=== PATIENT | female | born 1945 | race Caucasian/White ===

== ENCOUNTER 2019-08-10 15:05 | Emergency (ER) | payer MEDICARE, SELFPAY ==
--- NOTE | 2019-08-10 15:05 | XR_ITS ---
WS: [id number] RIGHT FOOT: 3 VIEW(S) TECHNIQUE: AP, oblique and lateral. HISTORY: injury COMPARISON: None. Transverse fracture at the base of the fifth metatarsal. Fracture extends transversely through the pr oximal metatarsal but also extends into the diaphysis. No significant displacement. Moderate amount of soft tissue edema surrounding the foot. Small calcaneal spur. XR/XR foot RT min 3V* [id number] IMPRESSION: Nondisplaced fractures involving the proximal and mid fifth metatarsal without displacement.
[2019-08-10 15:11] VITALS: BP 124/82; PULSE 159; RESP 16; TEMP 37.1; O2SAT 95; BMI 31.3
--- NOTE | 2019-08-10 15:16 | XR_ITS ---
WS: [id number] PORTABLE CHEST HISTORY: dyspnea/cough COMPARISON: None available. Lungs are clear and well expanded. No pleural effusion or pneumothorax. Cardiac size: Mildly enlarged cardiac silhouette. Mediastinum/Aorta: Mildly prominent mediastinum. No osseous abnormality seen. XR/XR chest 1V portable [id number] IMPRESSION: Mild cardiomegaly and ectatic thoracic aorta.
--- NOTE | 2019-08-10 15:17 | ECG_ITS ---
Measurements Intervals [place] Rate: 123 P: [place]: 0 QRS: 207 QRSD: 101 T: 120 QT: 284 QTc: 408 ATRIAL FIBRILLATION WITH RAPID VENTRICULAR RESPONSE WITH ABERRANT CONDUCTION OR VENTRICULAR PREMATURE COMPLEXES POSSIBLE RIGHT VENTRICULAR HYPERTROPHY POSSIBLE ANTERIOR MYOCARDIAL INFARCTION , PROBABLY OLD No previous ECG available for comparison Electronically Signed On 08-11-2019 15:40:12 CDT by Becky Lowery M.D. [id number] f
[2019-08-10] MEDS: metoprolol tartrate 1 mg/1 mL SDV 5 mL 5 MG IV (15:41)
[2019-08-10] MEDS: metoprolol tartrate 25 mg Tablet PO ×2 (15:42→17:49)
[2019-08-10 15:44] VITALS: BP 104/85; PULSE 104; RESP 20; O2SAT 96
[2019-08-10 15:56] LABS: Basophils % 0.1 %; Eosinophils # 0.2 10^3/uL (0.0-0.8); Eosinophils % 1.9 %; Hemoglobin 12.4 g/dL (11.5-15.3); Lymphocytes # 1.5 10^3/uL (0.8-4.8); Lymphocytes % 15.1 %; Mean Corpuscular HGB Conc 32.6 g/dL (30.0-36.0); Mean Corpuscular Hemoglobin 30.7 pg (28.0-34.0); Mean Corpuscular Volume 94.1 fL (81-99); Mean Platelet Volume 10.1 fL (7.4-10.4); Monocytes % 10.2 %; Neutrophils # 7.3 10^3/uL (1.8-7.7); Neutrophils % 72.1 %; Nucleated Red Blood Cells % 0 %; Platelet Count 194 10^3/cmm (130-400); Red Blood Count 4.04 10^6/uL (4.1-5.3); Red Cell Distribution Width 12.5 % (12.1-15.1); White Blood Count 10.1 10^3/uL (4.0-10.0)
[2019-08-10 16:43] VITALS: BP 115/84; PULSE 88; RESP 20; O2SAT 95
--- NOTE | 2019-08-10 16:47 | W.ED.EXTPRO ---
HPI - Extremity Problem General: Chief complaint: Extremity Injury, Lower Stated complaint: R FOOT PAIN, SWELLING Time Seen by Provider: 08/10/19 15:08 History of Present Illness: HPI Narrative: 74-year-old female who comes in complaining of foot pain. She is brought in via EMS. 4 days ago she tripped over a weedeater while working outside and had foot pain laterally after that she developed a blister which is been draining slightly she has it covered. She denies any other injuries other than to the lateral aspect of the foot she has not been able to walk on it since. In addition to that though when on arrival she was found to be in A. fib with RVR she has a known history of A. fib with RVR and had not taken any of her medications today. MD Complaint: extremity pain and extremity swelling Onset (ago): day(s) (4) Pain Consistency: constant Location: right Associated symptoms: Deny chest pain, fever(s) or rash Review of Systems Const: Denies: fever, chills, body aches, change in appetite, fatigue or malaise ENMT: Denies: throat pain, ear pain, nasal discharge or nasal congestion Card: Reports: palpitations and irregular heart rhythm; Denies: chest pain, edema, shortness of breath on exertion or shortness of breath when lying down Resp: Denies: shortness of breath, productive cough or non-productive cough GI: Denies: abdominal pain, nausea, vomiting, vomiting blood, coffee grounds in vomit, diarrhea, constipation, bloating, blood in stool or black tarry stool : Denies: flank pain, difficulty urinating, painful urination, urinary frequency or urinary urgency Skin/Breast: Denies: rash or itching PFSH ED PFSH: Social History Smoking and tobacco status: never smoked Physical Exam Const: COMMON NORMALS: no apparent distress GENERAL APPEARANCE: cooperative and comfortable ORIENTATION/CONSCIOUSNESS: Yes awake, Yes oriented to person, Yes oriented to place and Yes oriented to time HENMT: COMMON NORMALS: normocephalic, head/scalp atraumatic, hearing grossly normal bilaterally, external ears normal, EAC's normal, TM's normal bilaterally, nasal mucous membranes and turbinates normal, moist oral mucous membranes and oropharynx normal HEAD & SCALP: normocephalic and atraumatic NOSE: nasal mucous membranes and turbinates normal EXTERNAL EAR: Yes external ears normal EXTERNAL AUDITORY CANAL: EAC's normal TYMPANIC MEMBRANE: TM's normal bilaterally Eye: COMMON NORMALS: PERRL, EOMs intact bilaterally, conjunctivae normal and no scleral icterus CONJUNCTIVA: Yes conjunctivae normal PUPIL: Yes PERRL Neck/C-Spine: COMMON NORMALS: full ROM, no lymphadenopathy, supple and no JVD Lymph: LYMPHATIC: no lymphadenopathy noted and no lymphedema noted Resp: COMMON NORMALS: normal respiratory effort, no retractions, no use of accessory muscles and clear to auscultation bilaterally AUSCULTATION: clear to auscultation bilaterally Cardio: COMMON NORMALS: no JVD and no murmurs RATE: tachycardic RHYTHM: abnormal rhythm irregularly irregular GI: COMMON NORMALS: soft to palpation and no hepatosplenomegaly AUSCULTATION: Yes normoactive bowel sounds PALPATION: Yes soft, No tender, No guarding and Yes no hepatosplenomegaly Extremity: COMMON NORMALS: no calf tenderness OTHER: Fracture blister on the lateral aspect of the right foot no signs infection no erythema no drainage is tender no obvious deformity dorsalis pedis posterior tibialis pulses are present and normal Neuro: SENSORIUM/ORIENTATION: Yes oriented to person, Yes oriented to place and Yes oriented to time Skin: COMMON NORMALS: no rashes or lesions noted GENERAL SKIN EXAM: no rashes or lesions noted Course Vital Signs: Vital signs: Vital Signs Temperature 98.8 F 08/10/19 15:11 Pulse Rate 86 08/10/19 18:03 Respiratory Rate 16 08/10/19 18:03 Blood Pressure 128/79 08/10/19 18:03 Pulse Oximetry 95 08/10/19 18:03 MDM - Extremity (Nontraumatic) MDM Narrative: Medical decision making narrative: X-ray shows a Walton fracture on the right foot. Will make arrangements for her to see podiatry early next week. Her A. fib is in rapid ventricular response when she arrived we gave her a dose of IV beta-sylvia and dosed her with her oral dig and oral beta-sylvia which she usually takes rate slowed down and remained controlled she was feeling fine we will go ahead and discharge her home. Lab Data: Labs: Lab Results 08/10/19 Range/Units 15:44 WBC 10.1 H (4.0-10.0) 10^3/ uL RBC 4.04 L (4.1-5.3) 10^6/u L Hgb 12.4 (11.5-15.3) g/dL Hct 38.0 (37.0-47.0) % MCV 94.1 (81-99) fL MCH 30.7 (28.0-34.0) pg MCHC 32.6 (30.0-36.0) g/dL RDW 12.5 (12.1-15.1) % Plt Count 194 (130-400) 10^3/c mm MPV 10.1 (7.4-10.4) fL Neut % (Auto) 72.1 % Lymph % (Auto) 15.1 % [place] % (Auto) 10.2 % Eos % (Auto) 1.9 % Baso % (Auto) 0.1 % Neut # (Auto) 7.3 (1.8-7.7) 10^3/u L Lymph # (Auto) 1.5 (0.8-4.8) 10^3/u L [place] # (Auto) 1.0 H (0.2-0.9) 10^3/u L Eos # (Auto) 0.2 (0.0-0.8) 10^3/u L Baso # (Auto) 0.0 (0.0-0.1) 10^3/u L Nucleated RBC % (a uto) 0 % Nucleated RBCs # 0.0 /100WBC Discharge Plan Discharge Patient Disposition: Home, Self-Care Clinical Impression: Walton fracture, Atrial fibrillation Condition: Stable Prescriptions: New hydrocodone-acetaminophen 5-325 mg tablet 1 tab PO Q6H PRN (Reason: pain) 20 Days Qty: 20 RF: 0 No Action furosemide 40 mg tablet 40 mg PO DAILY RF: 0 levothyroxine 175 mcg tablet 175 mcg PO DAILY RF: 0 metoprolol succinate 50 mg tablet extended release 24 hr 50 mg PO BID RF: 0 digoxin 250 mcg (0.25 mg) tablet 250 mcg PO DAILY RF: 0 potassium chloride 20 mEq tablet,ER particles/crystals 20 meq PO DAILY RF: 0 warfarin 5 mg tablet 5 mg PO DAILY RF: 0 gabapentin 100 mg capsule 100 mg PO BEDTIME RF: 0 timolol maleate 0.5 % drops 0.5 drp ophthalmic (eye) BID RF: 0 metformin 500 mg tablet extended release 24 hr 500 mg PO DAILY RF: 0 Humalog KwikPen Insulin 100 unit/mL insulin pen See Rx Instructions .ROUTE .COMPLEX RF: 0 Lantus Solostar U-100 Insulin 100 unit/mL (3 mL) insulin pen 40 unit SUBCUT BEDTIME RF: 0 Discharge Orders: Discharge Order (Routine); Ordered 08/10/19 Ordered By: Saul Raymond Referrals: Janae Wiggins MD [Primary Care Provider] - Discharge Diet: Usual diet Discharge Activity: Limit activity as instructed Activity Restrictions/Additional Instructions: Case management will call with an appointment with Dr. Ramirez. Until that time where the postop shoe and use crutches nonweightbearing on the right foot. Discharge Date/Time: 08/10/19 18:03 Coding Level of Care Code ED Complaint Operator for Yani Fwluz Exam Comprehensive
[2019-08-10 17:49] VITALS: PULSE 92
[2019-08-10] MEDS: digoxin 250 mcg Tablet PO (17:49)
[2019-08-10 18:03] VITALS: BP 128/79; PULSE 86; RESP 16; O2SAT 95
--- NOTE | 2019-08-11 10:01 | DCPLANNER ---
manager servicing had message to schedule a follow up appointment for patient with ortho. manager servicing called the ortho clinic, spoke with Pat, gave clinic patients information. manager servicing was told that patients information would be printed and reviewed. Clinic will call supervisor case loading and patient with appointment information.
--- NOTE | 2019-08-16 15:36 | DCPLANNER ---
Patient had an appointment scheduled for 08.14.19 with ortho. Patient did attend the appointment.
== END 2019-08-10 18:03 | disposition home or self-care (01) ==
PROVIDERS: Emergency Provider Family Medicine; Family Provider Family Medicine; PCP Family Medicine
DX: S92.351A Displaced fracture of fifth metatarsal bone, right foot, initial encounter for closed fracture (principal); W18.09XA Striking against other object with subsequent fall, initial encounter; I48.91 Unspecified atrial fibrillation; Z79.4 Long term (current) use of insulin; Z79.01 Long term (current) use of anticoagulants
CPT/HCPCS: 12345; 36415; 71045; 73630; 85025; 93005; 96374; 99283; E0114; J3490

== ENCOUNTER → 2019-08-14 12:48 | Outpatient (BNVA) | payer MEDICARE, SELFPAY | PROVIDERS: Family Provider Family Medicine; PCP Family Medicine; Referring Provider Emergency Medicine; Visit Provider Podiatrist Foot & Ankle Surgery | DX: S92.351A Displaced fracture of fifth metatarsal bone, right foot, initial encounter for closed fracture (principal); X58.XXXA Exposure to other specified factors, initial encounter | CPT/HCPCS: 73630 ==

== ENCOUNTER 2019-08-14 15:46 | Outpatient (CLI) | payer MEDICARE, SELFPAY | END 2019-08-14 15:47 | disposition home or self-care (01) | LOC: SPT 15:47 | PROVIDERS: Family Provider Family Medicine; PCP Family Medicine; Visit Provider Podiatrist Foot & Ankle Surgery | DX: Z46.89 Encounter for fitting and adjustment of other specified devices (principal); S92.354D Nondisplaced fracture of fifth metatarsal bone, right foot, subsequent encounter for fracture with routine healing; X58.XXXD Exposure to other specified factors, subsequent encounter | CPT/HCPCS: 73630; L4361 ==

== ENCOUNTER → 2019-08-21 10:49 | Outpatient (BNVA) | payer MEDICARE, SELFPAY | PROVIDERS: Family Provider Family Medicine; PCP Family Medicine; Visit Provider Podiatrist Foot & Ankle Surgery | DX: S99.921A Unspecified injury of right foot, initial encounter (principal); S92.354A Nondisplaced fracture of fifth metatarsal bone, right foot, initial encounter for closed fracture; X58.XXXA Exposure to other specified factors, initial encounter | CPT/HCPCS: 73630 ==

== ENCOUNTER → 2019-09-05 14:40 | Outpatient (BNVA) | payer MEDICARE, SELFPAY | PROVIDERS: Family Provider Family Medicine; PCP Family Medicine; Visit Provider Podiatrist Foot & Ankle Surgery | DX: S99.921A Unspecified injury of right foot, initial encounter (principal); S92.354A Nondisplaced fracture of fifth metatarsal bone, right foot, initial encounter for closed fracture; X58.XXXA Exposure to other specified factors, initial encounter; M77.31 Calcaneal spur, right foot | CPT/HCPCS: 73630 ==

== ENCOUNTER → 2019-09-19 14:18 | Outpatient (BNVA) | payer MEDICARE, SELFPAY | PROVIDERS: Family Provider Family Medicine; PCP Family Medicine; Visit Provider Podiatrist Foot & Ankle Surgery | DX: S92.354A Nondisplaced fracture of fifth metatarsal bone, right foot, initial encounter for closed fracture (principal); X58.XXXA Exposure to other specified factors, initial encounter | CPT/HCPCS: 73630 ==

== ENCOUNTER 2019-09-19 15:31 | Outpatient (CLI) | payer MEDICARE, SELFPAY | END 2019-09-19 15:32 | disposition home or self-care (01) | LOC: SPT 15:31 | PROVIDERS: Family Provider Family Medicine; PCP Family Medicine; Visit Provider Podiatrist Foot & Ankle Surgery | DX: Z46.89 Encounter for fitting and adjustment of other specified devices (principal); S92.354D Nondisplaced fracture of fifth metatarsal bone, right foot, subsequent encounter for fracture with routine healing; X58.XXXD Exposure to other specified factors, subsequent encounter; S92.354A Nondisplaced fracture of fifth metatarsal bone, right foot, initial encounter for closed fracture; X58.XXXA Exposure to other specified factors, initial encounter | CPT/HCPCS: 73630; 97760; L1902; L3031 ==

== ENCOUNTER → 2019-10-03 14:52 | Outpatient (BNVA) | payer MEDICARE, SELFPAY | PROVIDERS: Family Provider Family Medicine; PCP Family Medicine; Visit Provider Podiatrist Foot & Ankle Surgery | DX: S92.354D Nondisplaced fracture of fifth metatarsal bone, right foot, subsequent encounter for fracture with routine healing (principal); W18.09XD Striking against other object with subsequent fall, subsequent encounter | CPT/HCPCS: 73630 ==

== ENCOUNTER → 2019-10-31 15:12 | Outpatient (BNVA) | payer MEDICARE, SELFPAY | PROVIDERS: Family Provider Family Medicine; PCP Family Medicine; Visit Provider Podiatrist Foot & Ankle Surgery | DX: S92.354D Nondisplaced fracture of fifth metatarsal bone, right foot, subsequent encounter for fracture with routine healing (principal); R23.8 Other skin changes; G62.9 Polyneuropathy, unspecified | CPT/HCPCS: 73630 ==

== ENCOUNTER → 2019-11-28 13:57 | Outpatient (BNVA) | payer MEDICARE, SELFPAY | PROVIDERS: Family Provider Family Medicine; PCP Family Medicine; Visit Provider Podiatrist Foot & Ankle Surgery | DX: S92.354D Nondisplaced fracture of fifth metatarsal bone, right foot, subsequent encounter for fracture with routine healing (principal); X58.XXXD Exposure to other specified factors, subsequent encounter; R23.8 Other skin changes | CPT/HCPCS: 73630 ==

== ENCOUNTER → 2020-01-23 14:29 | Outpatient (BNVA) | payer MEDICARE, SELFPAY | PROVIDERS: Family Provider Family Medicine; PCP Family Medicine; Visit Provider Podiatrist Foot & Ankle Surgery | DX: S92.354D Nondisplaced fracture of fifth metatarsal bone, right foot, subsequent encounter for fracture with routine healing (principal); X58.XXXD Exposure to other specified factors, subsequent encounter | CPT/HCPCS: 73630 ==

== ENCOUNTER 2020-10-05 11:28 | Inpatient (IN) | payer MEDICARE, SELFPAY ==
[2020-10-05] VITALS (31 sets, daily range): BP systolic 71–157; BP diastolic 40–109; PULSE 82–116; RESP 14–20; TEMP 35.9–36.8; O2SAT 91–95; BMI 34.7
--- NOTE | 2020-10-05 11:49 | CTR_ITS ---
PROCEDURE INFORMATION: Exam: CT Head Without Contrast Exam date and time: 10/05/2020 11:49 AM Age: 75 years old Clinical indication: Altered mental status/memory loss; Confusion or disorientation; Additional info: AMS TECHNIQUE: Imaging protocol: Computed tomography of the head without contrast. Radiation optimization: All CT scans at this facility use at least one of these dose optimization techniques: automated exposure control; mA and/or kV adjustment per patient size (includes targeted exams where dose is matched to clinical indication); or iterative reconstruction. COMPARISON: MRI Head w/wo* [id number] 01/19/2019 2:54 PM RADIATION DOSE METRICS: Total DLP (mGy-cm): 1477.01 FINDINGS: Limitations: Study is somewhat limited by patient motion. 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 There is moderate cortical atrophy. Low-density changes in the white matter are consistent with nonspecific small vessel chronic ischemic change. There is no intracranial mass, hemorrhage or edema. Cerebral ventricles: No ventriculomegaly. Paranasal sinuses: Visualized sinuses are unremarkable. No fluid levels. Mastoid air cells: Visualized mastoid air cells are well aerated. Bones/joints: Unremarkable. No acute fracture. Soft tissues: Unremarkable. CT/CT head wo con* [id number] IMPRESSION: Old infarcts. No acute intracranial finding Radiation Dose CTDIVOL = (mGy): DLP = 1477.01 (mGy-cm)
[2020-10-05] MEDS: dextrose 50% syringe 50 mL IVP (11:55)
--- NOTE | 2020-10-05 11:58 | XRR_ITS ---
PROCEDURE INFORMATION: Exam: XR Chest Exam date and time: 10/05/2020 11:58 AM Age: 75 years old Clinical indication: Dyspnea; Additional info: AMS TECHNIQUE: Imaging protocol: XR of the chest. Views: 1 view. COMPARISON: CR XR chest 1V portable [id number] 08/10/2019 3:28 PM FINDINGS: Limitations: Patient is rotated towards the right. Lungs: Visualized portions of the lungs are clear. Pleural spaces: Unremarkable. No pleural effusion. No pneumothorax. Heart/Mediastinum: Heart is within normal limits of size. Vasculature: There are atherosclerotic calcifications in the aortic arch. Bones/joints: Unremarkable. Other findings: Allowing for technical differences, findings are not significantly changed from 08/10/2019. XR/XR chest 1V portable [id number] IMPRESSION: No acute infiltrate.
--- NOTE | 2020-10-05 11:58 | ECG_ITS ---
[facility] Test Date: 2020-10-05 Pat Name: Sandra Richardson Department: Room: Gender: Female Java Developer: : 1945 Requested By: Nimesh Escobedo I Order Number: [id number] Flip MD: Saloni Silverio M.D. Measurements Intervals [place] Rate: 85 P: [place]: QRS: 179 QRSD: 103 T: 0 QT: 318 QTc: 378 Interpretive Statements ATRIAL FIBRILLATION INDETERMINATE AXIS PATTERN CONSISTENT WITH PULMONARY DISEASE MODERATE ST DEPRESSION [0.05+ mV ST DEPRESSION] Compared to ECG 08/10/2019 15:26:50 Indeterminate axis now present ST (T wave) deviation now present Aberrant conduction of supraventricular beat(s) no longer present Ventricular premature complex(es) no longer present Myocardial infarct finding no longer present Electronically Signed On 10-06-2020 9:44:16 CDT by Saloni Silverio M.D. [id number]
[2020-10-05] MEDS: naloxone 0.4 mg/ml SDV IVP (12:00)
[2020-10-05 12:28] LABS: ABG PCO2 42.9 mmHg (35-45); ABG PH Result 7.43 (7.35-7.45); Arterial Blood Gas Hematocrit 46.2 % (37-47); Base Excess ABG 3.7 mmol/L (-2.0-2.0); Blood Gas Allen Test Pos; Blood Gas Sample Type Arterial; HCO3 ABG 28.6 mmol/L (22-26); PO2 ABG 74.3 mmHg (80.0-100.0)
[2020-10-05 12:29] LABS: Blood Gas Operator Identificat ED; Blood Gas Sample Site Radial, left; Oxygen Device ROOM AIR
[2020-10-05 12:41] LABS: Basophils # 0.1 10^3/uL (0.0-0.1); Basophils % 0.7 %; Eosinophils % 0.4 %; Hematocrit 44.3 % (37.0-47.0); Hemoglobin 14.9 g/dL (11.5-15.3); Lymphocytes # 0.9 10^3/uL (0.8-4.8); Lymphocytes % 8.9 %; Mean Corpuscular HGB Conc 33.6 g/dL (30.0-36.0); Mean Corpuscular Volume 89.3 fL (81-99); Mean Platelet Volume 9.6 fL (7.4-10.4); Monocytes # 1.1 10^3/uL (0.2-0.9); Monocytes % 10.3 %; Neutrophils # 8.15 10^3/uL (1.8-7.7); Neutrophils % 79.1 %; Nucleated Red Blood Cells % 0 %; Platelet Count 228 10^3/cmm (130-400); Red Blood Count 4.96 10^6/uL (4.1-5.3); Red Cell Distribution Width 12.6 % (12.1-15.1); White Blood Count 10.3 10^3/uL (4.0-10.0)
[2020-10-05 13:00] LABS: Glucose Point of Care 200 mg/dL (70-110)
[2020-10-05 13:24] LABS: Lactic Sepsis W/Reflex 1.6 mmol/L (0.5-2.2)
[2020-10-05 13:26] LABS: Albumin Level 3.6 g/dL (3.5-5.2); Chloride 95 mmol/L (98-107); Sodium 136 mmol/L (136-145)
[2020-10-05 13:27] LABS: Troponin(5th) Baseline 33 ng/L (0-10)
--- NOTE | 2020-10-05 13:58 | ECG_ITS ---
[facility] Test Date: 2020-10-05 Pat Name: Sandra Richardson Department: Room: Gender: Female Rod Greaser: : 1945 Requested By: Nimesh Escobedo I Order Number: [id number] Flip MD: Saloni Silverio M.D. Measurements Intervals [place] Rate: 93 P: [place]: QRS: 149 QRSD: 109 T: 240 QT: 311 QTc: 387 Interpretive Statements ATRIAL FIBRILLATION INDETERMINATE AXIS PATTERN CONSISTENT WITH PULMONARY DISEASE MODERATE ST DEPRESSION [0.05+ mV ST DEPRESSION] ABNORMAL QRS-T ANGLE [QRS-T AXIS DIFFERENCE > 60] INTERPRETATION BASED ON A DEFAULT AGE OF 40 YEARS Compared to ECG 10/05/2020 12:06:22 No significant changes Electronically Signed On 10-06-2020 9:47:53 CDT by Saloni Silverio M.D. [id number]
[2020-10-05 13:59] LABS: Alanine Aminotransferase 28 U/L (0-33); Alkaline Phosphatase 129 IU/L (35-105); Aspartate Amino Transferase 61 U/L (0-32); Blood Urea Nitrogen 21 mg/dL (8-23); Calcium 9.1 mg/dL (8.5-10.5); Carbon Dioxide 29 mmol/L (22-29); Globulin 2.1 g/dL (1.3-4.6); Glucose 284 mg/dL (65-115); Osmolality Calculated 295 mOsm/kg (285-295); Total Bilirubin 0.8 mg/dL (0.15-1.2); Total Protein 5.7 g/dL (6.6-8.7)
--- NOTE | 2020-10-05 14:46 | W.ED.AMS ---
HPI - Altered Mental Status General: Chief Complaint: Altered Mental Status Stated Complaint: HYPOGLYCEMIA; AMS Time Seen by Provider: 10/05/20 11:32 Source: family (sister) and EMS Mode of arrival: ambulatory Limitations: no limitations History of Present Illness: HPI narrative: This 75-year-old female patient was brought in by EMS after she was found by her sister unresponsive this morning. History is given by the sister and EMS. Her sister is visiting the patient from [place] and last night the patient went to the restroom and when her sister noticed that she was there for a long time she went into check on her and the patient was slumped over in the toilet. Blood glucose done at the time was in the 30s. They were able to get the patient awake got her to eat some things and wanted to call an ambulance for the patient refused and said she was better. The highest to go her blood glucose up to was something in the 80s and they gave her her nighttime insulin dose. Again the patient refused to go to the emergency department and refused to eat anymore as she said she was fine and new when she was hypoglycemic. She then went to sleep. This morning around 930 her sister went to go wake her up but heard her snoring so did not wake the patient up. When he was 10:00 and the patient still had awoken of the sister wanted to try to get her to wake up and that is when she noticed that the patient was unresponsive and she could not get her to wake up. Blood glucose checked at the time was 41 and she called for an ambulance. The EMS crew gave her D5 infusion and on arrival to the emergency department her blood glucose was 68. She was given an amp of D50 following which her blood glucose junior into the 160s. The patient however still remained unresponsive and a trial of Narcan was done on which was not effective. Patient spontaneously opens eyes, makes some unintelligible sounds, and localizes to pain. complaint: altered mental status Review of Systems General: Reports: ROS unobtainable due to mental status [facility] ED PFSH: Medical History Atrial fibrillation CHF (congestive heart failure) Graves disease HTN (hypertension) Mitral regurgitation Type 1 diabetes Family History Mother Cancer CAD (coronary artery disease) Myocardial infarction Father Myocardial infarction Social History Smoking and tobacco status: never smoked Alcohol intake: never Current occupational status: retired Physical Exam Const: COMMON NORMALS: no acute distress, average body habitus, patient oriented x3, no limitations, healthy appearing and well nourished HENMT: COMMON NORMALS: normocephalic, atraumatic and moist oral mucous membranes HEAD & SCALP: normocephalic and atraumatic Eye: COMMON NORMALS: Equal, round and reactive pupils present, EOMs intact bilaterally, conjunctivae normal and no scleral icterus CONJUNCTIVA: Yes conjunctivae normal PUPIL: Yes Equal, round and reactive pupils present Neck/C-Spine: COMMON NORMALS: no meningeal signs and no JVD Resp: COMMON NORMALS: normal respiratory effort, No retractions, No use of accessory muscles, clear to auscultation bilaterally and percussion normal AUSCULTATION: clear to auscultation bilaterally PERCUSSION: percussion normal Cardio: COMMON NORMALS: no JVD, regular rate, regular rhythm, S1 normal heart sound present, S2 normal heart sound present, No gallops present (Cardio), No clicks present (Cardio), No murmurs present (Cardio), No rub (Cardio) and Peripheral pulses 2+ throughout RATE: regular rate RHYTHM: regular rhythm HEART SOUNDS: S1 normal heart sound present and S2 normal heart sound present PERIPHERAL PULSES: Peripheral pulses 2+ throughout GI: COMMON NORMALS: Normal to inspection, nondistended, normoactive bowel sounds present, Soft to palpation, non-tender, No hepatosplenomegaly present, no masses and no bruits PALPATION: Yes Soft to palpation and Yes No hepatosplenomegaly present Extremity: COMMON NORMALS: normal to inspection, full ROM, capillary refill normal, no calf tenderness and no pedal edema Neuro: ЕЛЕНА COMA SCALE: document GCS findings Елена coma scale eye opening: Spontaneous [place] coma scale verbal response: Sounds [place] coma scale motor response: Localising [place] coma scale total score: 11 COMMON NORMALS: patient oriented x3 SENSORIUM/ORIENTATION: Yes obtunded MENINGEAL SIGNS: Yes no meningeal signs Skin: COMMON NORMALS: no rashes or lesions noted, no wounds, turgor normal, no jaundice, no petechiae and no mottling GENERAL SKIN EXAM: no rashes or lesions noted and turgor normal Course Consultations: Consultation #1: Discussed the patient with Dr. Cannon, hospitalist and he kindly accepted the patient to his service. Time: 14:36 Vital Signs: Vital signs: Vital Signs Temperature 98.2 F 10/05/20 19:15 Pulse Rate 93 10/05/20 22:15 Respiratory Rate 14 10/05/20 22:15 Blood Pressure 109/62 10/05/20 22:15 Pulse Oximetry 94 10/05/20 22:15 MDM - Altered Mental Status MDM Narrative: Medical decision making narrative: This 75-year-old female patient presented to the emergency department with unresponsiveness. Unfortunately it appears as she spent the whole night hypoglycemic and has had a prolonged hypoglycemic episode. She had an episode of hypoglycemia last night with blood glucose in the 30s, her family was able to raise it up into the 80s but still subsequently gave her her nighttime insulin dose. This morning when they tried to wake her up she was unresponsive and her blood glucose at that time was in the 40s. Her blood glucose has been raised for the patient is still unresponsive with a Елена Coma Score fluctuating between the 10 and 11. Evaluation was otherwise unremarkable with no obvious cause for her symptoms. Unfortunately the prolonged hypoglycemia may have caused some brain damage and she will be admitted to the ICU for further evaluation and management. She was started on prophylactic antibiotics in case she may have aspirated overnight. Medical Records: Attestation: I reviewed the patient's medical records. Lab Data: Attestation: I reviewed the patient's lab results. Labs: Lab Results 10/05/20 10/05/20 10/05/20 Range/Units 12:18 12:27 12:27 WBC 10.3 H (4.0-10.0) 10^3/ uL RBC 4.96 (4.1-5.3) 10^6/u L Hgb 14.9 (11.5-15.3) g/dL Hct 44.3 (37.0-47.0) % MCV 89.3 (81-99) fL MCH 30.0 (28.0-34.0) pg MCHC 33.6 (30.0-36.0) g/dL RDW 12.6 (12.1-15.1) % Plt Count 228 (130-400) 10^3/c mm MPV 9.6 (7.4-10.4) fL Neut % (Auto) 79.1 % Lymph % (Auto) 8.9 % Leslie % (Auto) 10.3 % Eos % (Auto) 0.4 % Baso % (Auto) 0.7 % Neut # (Auto) 8.15 H (1.8-7.7) 10^3/u L Lymph # (Auto) 0.9 (0.8-4.8) 10^3/u L Leslie # (Auto) 1.1 H (0.2-0.9) 10^3/u L Eos # (Auto) 0.0 (0.0-0.8) 10^3/u L Baso # (Auto) 0.1 (0.0-0.1) 10^3/u L Nucleated RBC % (a uto) 0 % Nucleated RBCs # 0.0 /100WBC D-Dimer (0-0.59) ug/mIFE U Specimen Type Arterial Sample Site Radial, left ABG pH 7.43 (7.35-7.45) ABG pCO2 42.9 (35-45) mmHg ABG pO2 74.3 L (80.0-100.0) mmH g ABG HCO3 28.6 H (22-26) mmol/L ABG Base Excess 3.7 H (-2.0-2.0) mmol/ L Shahid Test Pos Hematocrit 46.2 (37-47) % O2 Delivery Device Room air FiO2 21.0 % Power Hair Clipper ID Ed Sodium 136 (136-145) mmol/L Potassium 4.0 (3.5-5.1) mmol/L Chloride 95 L (98-107) mmol/L Carbon Dioxide 29 (22-29) mmol/L Anion Gap 16.0 (5-19) BUN 21 (8-23) mg/dL Creatinine 1.2 H (0.5-0.9) mg/dL GFR Calculation Not Reportable Glucose 284 H (65-115) mg/dL POC Glucose (70-110) mg/dL Calculated Osmolal ity 295 (285-295) mOsm/k g Lactic Acid (0.5-2.2) mmol/L Calcium 9.1 (8.5-10.5) mg/dL Total Bilirubin 0.8 (0.15-1.2) mg/dL AST 61 H (0-32) U/L ALT 28 (0-33) U/L Alkaline Phosphata se 129 H (35-105) IU/L Troponin T Baselin e (0-10) ng/L Troponin T 120 Min [place] (0-10) ng/L Delta Troponin T (0-10) ABS# Total Protein 5.7 L (6.6-8.7) g/dL Albumin 3.6 (3.5-5.2) g/dL Globulin 2.1 (1.3-4.6) g/dL TSH (0.27-4.20) uIU/ mL Digoxin (0.6-1.2) ng/mL 10/05/20 10/05/20 10/05/20 Range/Units 12:27 12:27 12:27 WBC (4.0-10.0) 10^3/ uL RBC (4.1-5.3) 10^6/u L Hgb (11.5-15.3) g/dL Hct (37.0-47.0) % MCV (81-99) fL MCH (28.0-34.0) pg MCHC (30.0-36.0) g/dL RDW (12.1-15.1) % Plt Count (130-400) 10^3/c mm MPV (7.4-10.4) fL Neut % (Auto) % Lymph % (Auto) % Leslie % (Auto) % Eos % (Auto) % Baso % (Auto) % Neut # (Auto) (1.8-7.7) 10^3/u L Lymph # (Auto) (0.8-4.8) 10^3/u L Leslie # (Auto) (0.2-0.9) 10^3/u L Eos # (Auto) (0.0-0.8) 10^3/u L Baso # (Auto) (0.0-0.1) 10^3/u L Nucleated RBC % (a uto) % Nucleated RBCs # /100WBC D-Dimer 0.57 (0-0.59) ug/mIFE U Specimen Type Sample Site ABG pH (7.35-7.45) ABG pCO2 (35-45) mmHg ABG pO2 (80.0-100.0) mmH g ABG HCO3 (22-26) mmol/L ABG Base Excess (-2.0-2.0) mmol/ L Shahid Test Hematocrit (37-47) % O2 Delivery Device FiO2 % Power Hair Clipper ID Sodium (136-145) mmol/L Potassium (3.5-5.1) mmol/L Chloride (98-107) mmol/L Carbon Dioxide (22-29) mmol/L Anion Gap (5-19) BUN (8-23) mg/dL Creatinine (0.5-0.9) mg/dL GFR Calculation Glucose (65-115) mg/dL POC Glucose (70-110) mg/dL Calculated Osmolal ity (285-295) mOsm/k g Lactic Acid 1.6 (0.5-2.2) mmol/L Calcium (8.5-10.5) mg/dL Total Bilirubin (0.15-1.2) mg/dL AST (0-32) U/L ALT (0-33) U/L Alkaline Phosphata se (35-105) IU/L Troponin T Baselin e 33 H (0-10) ng/L Troponin T 120 Min [place] (0-10) ng/L Delta Troponin T (0-10) ABS# Total Protein (6.6-8.7) g/dL Albumin (3.5-5.2) g/dL Globulin (1.3-4.6) g/dL TSH (0.27-4.20) uIU/ mL Digoxin (0.6-1.2) ng/mL 10/05/20 10/05/20 10/05/20 Range/Units 12:57 14:27 14:27 WBC (4.0-10.0) 10^3/ uL RBC (4.1-5.3) 10^6/u L Hgb (11.5-15.3) g/dL Hct (37.0-47.0) % MCV (81-99) fL MCH (28.0-34.0) pg MCHC (30.0-36.0) g/dL RDW (12.1-15.1) % Plt Count (130-400) 10^3/c mm MPV (7.4-10.4) fL Neut % (Auto) % Lymph % (Auto) % Leslie % (Auto) % Eos % (Auto) % Baso % (Auto) % Neut # (Auto) (1.8-7.7) 10^3/u L Lymph # (Auto) (0.8-4.8) 10^3/u L Leslie # (Auto) (0.2-0.9) 10^3/u L Eos # (Auto) (0.0-0.8) 10^3/u L Baso # (Auto) (0.0-0.1) 10^3/u L Nucleated RBC % (a uto) % Nucleated RBCs # /100WBC D-Dimer (0-0.59) ug/mIFE U Specimen Type Sample Site ABG pH (7.35-7.45) ABG pCO2 (35-45) mmHg ABG pO2 (80.0-100.0) mmH g ABG HCO3 (22-26) mmol/L ABG Base Excess (-2.0-2.0) mmol/ L Shahid Test Hematocrit (37-47) % O2 Delivery Device FiO2 % Power Hair Clipper ID Sodium (136-145) mmol/L Potassium (3.5-5.1) mmol/L Chloride (98-107) mmol/L Carbon Dioxide (22-29) mmol/L Anion Gap (5-19) BUN (8-23) mg/dL Creatinine (0.5-0.9) mg/dL GFR Calculation Glucose (65-115) mg/dL POC Glucose 200 H (70-110) mg/dL Calculated Osmolal ity (285-295) mOsm/k g Lactic Acid (0.5-2.2) mmol/L Calcium (8.5-10.5) mg/dL Total Bilirubin (0.15-1.2) mg/dL AST (0-32) U/L ALT (0-33) U/L Alkaline Phosphata se (35-105) IU/L Troponin T Baselin e (0-10) ng/L Troponin T 120 Min [place] 29.81 H (0-10) ng/L Delta Troponin T -3.19 L (0-10) ABS# Total Protein (6.6-8.7) g/dL Albumin (3.5-5.2) g/dL Globulin (1.3-4.6) g/dL TSH (0.27-4.20) uIU/ mL Digoxin 1.2 (0.6-1.2) ng/mL 10/05/20 Range/Units 14:27 WBC (4.0-10.0) 10^3/ uL RBC (4.1-5.3) 10^6/u L Hgb (11.5-15.3) g/dL Hct (37.0-47.0) % MCV (81-99) fL MCH (28.0-34.0) pg MCHC (30.0-36.0) g/dL RDW (12.1-15.1) % Plt Count (130-400) 10^3/c mm MPV (7.4-10.4) fL Neut % (Auto) % Lymph % (Auto) % Leslie % (Auto) % Eos % (Auto) % Baso % (Auto) % Neut # (Auto) (1.8-7.7) 10^3/u L Lymph # (Auto) (0.8-4.8) 10^3/u L Leslie # (Auto) (0.2-0.9) 10^3/u L Eos # (Auto) (0.0-0.8) 10^3/u L Baso # (Auto) (0.0-0.1) 10^3/u L Nucleated RBC % (a uto) % Nucleated RBCs # /100WBC D-Dimer (0-0.59) ug/mIFE U Specimen Type Sample Site ABG pH (7.35-7.45) ABG pCO2 (35-45) mmHg ABG pO2 (80.0-100.0) mmH g ABG HCO3 (22-26) mmol/L ABG Base Excess (-2.0-2.0) mmol/ L Shahid Test Hematocrit (37-47) % O2 Delivery Device FiO2 % Power Hair Clipper ID Sodium (136-145) mmol/L Potassium (3.5-5.1) mmol/L Chloride (98-107) mmol/L Carbon Dioxide (22-29) mmol/L Anion Gap (5-19) BUN (8-23) mg/dL Creatinine (0.5-0.9) mg/dL GFR Calculation Glucose (65-115) mg/dL POC Glucose (70-110) mg/dL Calculated Osmolal ity (285-295) mOsm/k g Lactic Acid (0.5-2.2) mmol/L Calcium (8.5-10.5) mg/dL Total Bilirubin (0.15-1.2) mg/dL AST (0-32) U/L ALT (0-33) U/L Alkaline Phosphata se (35-105) IU/L Troponin T Baselin e (0-10) ng/L Troponin T 120 Min [place] (0-10) ng/L Delta Troponin T (0-10) ABS# Total Protein (6.6-8.7) g/dL Albumin (3.5-5.2) g/dL Globulin (1.3-4.6) g/dL TSH 0.34 (0.27-4.20) uIU/ mL Digoxin (0.6-1.2) ng/mL Imaging Data^: CXR: Attestation: I personally reviewed and interpreted this imaging study as follows: Radiologist's impression: [address] [address]PRvs ReportSigned Patient: Sandra Richardson #: [id number]: [id number]#:[id number]/Sex: 75 / FADM Date: 10/05/20Loc: ERRoom/Bed:Attending Dr: Ordering Provider/Ordering MD: Nimesh Escobedo MD, [facility] Date of Service: 10/05/20 Procedure(s): XR chest 1V portable [id number] Accession Number(s): [id number] Report Number: [id number] PROCEDURE INFORMATION: Exam: XR Chest Exam date and time: 10/05/2020 11:58 AM Age: 75 years old Clinical indication: Dyspnea; Additional info: AMS TECHNIQUE: Imaging protocol: XR of the chest. Views: 1 view. COMPARISON: CR XR chest 1V portable [id number] 08/10/2019 3:28 PM FINDINGS: Limitations: Patient is rotated towards the right. Lungs: Visualized portions of the lungs are clear. Pleural spaces: Unremarkable. No pleural effusion. No pneumothorax. Heart/Mediastinum: Heart is within normal limits of size. Vasculature: There are atherosclerotic calcifications in the aortic arch. Bones/joints: Unremarkable. Other findings: Allowing for technical differences, findings are not significantly changed from 08/10/2019. XR/XR chest 1V portable [id number] IMPRESSION: No acute infiltrate. Dictated By:Sadie Genaoigned By:Hong Genao Date/Time:10/05/20 1308DD/ 1305 CT Head: Attestation: I personally reviewed and interpreted this imaging study as follows: Radiologist's impression: [employer] [place], [place] [address]FH Scan ReportSigned Patient: Sandra Richardson #: [id number]: 8Acct#:[id number]/Sex: 75 / FADM Date: 10/05/20Loc: ERRoom/Bed:Attending Dr: Ordering Provider/Ordering MD: Nimesh Escobedo MD, [facility] Date of Service: 10/05/20 Procedure(s): CT head wo con* [id number] Accession Number(s): [id number] Report Number: [id number] PROCEDURE INFORMATION: Exam: CT Head Without Contrast Exam date and time: 10/05/2020 11:49 AM Age: 75 years old Clinical indication: Altered mental status/memory loss; Confusion or disorientation; Additional info: AMS TECHNIQUE: Imaging protocol: Computed tomography of the head without contrast. Radiation optimization: All CT scans at this facility use at least one of these dose optimization techniques: automated exposure control; mA and/or kV adjustment per patient size (includes targeted exams where dose is matched to clinical indication); or iterative reconstruction. COMPARISON: MRI Head w/wo* [id number] 01/19/2019 2:54 PM RADIATION DOSE METRICS: Total DLP (mGy-cm): 1477.01 FINDINGS: Limitations: Study is somewhat limited by patient motion. 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 There is moderate cortical atrophy. Low-density changes in the white matter are consistent with nonspecific small vessel chronic ischemic change. There is no intracranial mass, hemorrhage or edema. Cerebral ventricles: No ventriculomegaly. Paranasal sinuses: Visualized sinuses are unremarkable. No fluid levels. Mastoid air cells: Visualized mastoid air cells are well aerated. Bones/joints: Unremarkable. No acute fracture. Soft tissues: Unremarkable. CT/CT head wo con* [id number] IMPRESSION: Old infarcts. No acute intracranial finding Radiation Dose CTDIVOL = (mGy): DLP = 1477.01 (mGy-cm) Dictated By:Hong Genao By:Hong Genao Date/Time:10/05/20 1234DD/ 1232 EKG Data^: EKG 1: Attestation: I personally reviewed and interpreted this EKG as follows: EKG interpretation date: 10/05/20 EKG interpretation time: 12:06 Prior EKG tracings: not available for review Interpretation: Atrial fibrillation. Heart rate [address] changes. EKG 2: Attestation: I personally reviewed and interpreted this EKG as follows: EKG interpretation date: 10/05/20 EKG interpretation time: 13:37 Prior EKG tracings: available for review Interpretation: Atrial fibrillation. Heart rate [address] changes. Discharge Plan Discharge Patient Disposition: Admitted As Inpatient Admit Provider: Tesfaye Cannon Clinical Impression: Acute encephalopathy, Hypoglycemia, coma Atrial fibrillation Qualifiers: Atrial fibrillation type: unspecified Qualified Code(s): I48.91 - Unspecified atrial fibrillation Condition: Stable Coding Level of Care Code ED Bilingual Administrative Assistant for [facility] Fwd Exam Problem Focused
[2020-10-05 15:04] LABS: Troponin 5 2HR 29.81 ng/L (0-10)
[2020-10-05 15:19] LABS: Troponin 5 2HR Delta -3.19 ABS# (0-10)
[2020-10-05] MEDS: levofloxacin-dextrose 5 % 750 MG/150 ML PREMIX 100 MG IV (15:44)
--- NOTE | 2020-10-05 15:52 | P.HP_ITS ---
Providers/Chief Complaint Admitting Physician: Tesfaye Cannon MD Primary Care Provider: Janae Wiggins MD Chief Complaint: HYPOGLYCEMIA; AMS History of Present Illness Sandra Richardson is a 75 year old female with past medical history of, hypertension diabetes, heart failure, A. fib, hypothyroidism, was brought in by the EMS, with chief complaint of, patient not responding at home. Patient sister is at bedside and history is provided by her, patient has diabetes, and she was found in the bathroom last night by her sister who was visiting her from [place] after she was not doing well. Last night when she checked her blood sugar, it was very low, she ended up giving her, food to eat, to bring her blood sugar up, around 80 that is what she says, after that patient took her the night dose of insulin, when in the morning she was not waking up till 10:00, she was very worried, finger blood sugar was checked, it was in 40s, EMS was called, EMS gave D5 in route, blood sugar on arrival in the ER was in 60s she was given D50 and Narcan. Blood sugar was stable in 200s. She was worked up for above mentioned complaint. Imaging studies: CT head wo con: No acute intracranial finding. X-ray chest: No acute infiltrates, EKG: A. fib, with rate controlled, Pertinent labs: WBC:10.3, H&H:14/44, normal serum sodium normal serum potassium, BUN:normal, serum creatinine:1.2, Troponin: Baseline 33, 2-hour: 29, 2-hour delta:-3.19, D-dimer:0.57, serum digoxin:1.2, Serum TSH: ABG: pH 7.43, PCO2 42, PO2 74, FiO2 21% Review of Systems General: Reports: ROS unobtainable due to mental status Narrative: GCS:11 Medications/Allergies Home Medications Medication Instructions Recorded Confirmed Last Taken Type furosemide 40 mg PO DAILY 08/10/19 10/05/20 10/04/20 History gabapentin 100 mg PO DAILY 08/10/19 10/05/20 10/04/20 History insulin glargine [Lantus Solostar 50 unit SUBCUT BEDTIME 08/10/19 10/05/20 10/04/20 History U-100 Insulin] insulin lispro [Humalog KwikPen See Rx Instructions .ROUTE .COMPLEX 04/30/20 06/26/21 06/25/21 History Insulin] levothyroxine 175 mcg PO DAILY 08/10/19 10/05/20 10/05/20 History metformin 500 mg PO DAILY 08/10/19 10/05/20 10/04/20 History warfarin 5 mg PO DAILY 08/10/19 10/05/20 10/04/20 History brimonidine 0.2 %-timolol 0.5 % 1 drop OPHTHALMIC (EYE) BID 10/16/19 10/05/20 10/05/20 History eye drops cholecalciferol (vitamin D3) 25 3,000 unit PO DAILY cap 10/16/19 10/05/20 10/04/20 History mcg (1,000 unit) capsule metoprolol succinate 50 mg 50 mg PO BID #180 tab 10/16/19 10/05/20 10/04/20 Rx tablet,extended release 24 hr multivitamin 1 tab PO DAILY 10/16/19 10/05/20 10/04/20 History potassium chloride 20 mEq 20 meq PO DAILY #90 tab 11/17/19 10/05/20 10/04/20 Rx tablet,extended release(part/cryst) digoxin 250 mcg (0.25 mg) tablet 250 mcg PO DAILY #90 tab 08/12/20 10/05/20 10/04/20 Rx gabapentin 300 mg PO BEDTIME 10/05/20 10/05/20 10/04/20 History Allergies Allergy/AdvReac Type Severity Reaction Status Date / Time acetaminophen [From Tylenol] Allergy ALGY-Rash Verified 03/20/20 15:59 aspirin Allergy ALGY-Hives Verified 03/20/20 15:59 ibuprofen Allergy ALGY-Rash Verified 03/20/20 15:59 Penicillins Allergy Unknown Verified 03/20/20 15:59 PFSH Acute PFSH: Medical History (Updated 10/05/20 @ 15:58 by Tesfaye Cannon MD) Atrial fibrillation CHF (congestive heart failure) Graves disease HTN (hypertension) Mitral regurgitation Type 1 diabetes Family History Mother Cancer CAD (coronary artery disease) Myocardial infarction Father Myocardial infarction Social History Smoking and tobacco status: never smoked Alcohol intake: never Current occupational status: retired Vitals/I&O/Wt Last Vital Signs Temp 96.7 F L 10/05/20 11:37 Pulse 93 10/05/20 13:43 Resp 17 10/05/20 13:43 BP 145/84 10/05/20 13:43 Pulse Ox 94 10/05/20 13:43 Weight last 48 hrs Weight 97.522 kg Physical Exam HENMT: COMMON NORMALS: normocephalic and atraumatic HEAD & SCALP: normocephalic and atraumatic Chest: CHEST: Yes Symmetrical chest wall rise Resp: COMMON NORMALS: clear to auscultation bilaterally EFFORT & INSPECTION: Yes symmetric chest movement AUSCULTATION: clear to auscultation bilaterally Cardio: OTHER: S1S2 of variable intensity, GI: COMMON NORMALS: Soft to palpation, non-tender, No hepatosplenomegaly present and no masses AUSCULTATION: Yes normoactive bowel sounds PALPATION: Yes Soft to palpation and Yes No hepatosplenomegaly present RECTAL EXAM: deferred Extremity: COMMON NORMALS: no clubbing, cyanosis or edema and no pedal edema Neuro: COMMON NORMALS: patient oriented x3 Data : 10/05/20 12:27 10/05/20 12:27 Micro: Microbiology 10/05/20 12:30 Blood Culture - Preliminary Blood SPECIMEN COLLECTED 10/05/20 12:30 Blood Culture - Preliminary Blood SPECIMEN COLLECTED A&P Assessment and plan (1) Acute encephalopathy: Acute metabolic encephalopathy: Secondary to severe hypoglycemia. Current GCS is:10 Current plan is to continue to monitor the patient in ICU. Possible MRI without contrast. Status: Acute (2) Type 1 diabetes: LDSSI Monitor FSG D5 1/2 Ns @ 50cc/hr Status: Acute (3) Atrial fibrillation: A.fib not in RVR Currently rate controlled. Status: Acute Qualifiers: Atrial fibrillation type: longstanding persistent Qualified Code(s): I48.11 - Longstanding persistent atrial fibrillation (4) CHF (congestive heart failure): CHF Currently compensated Monitor I/O Daily Weight Status: Acute Qualifiers: Heart failure type: diastolic Heart failure chronicity: chronic Qualified Code(s): I50.32 - Chronic diastolic (congestive) heart failure (5) HTN (hypertension): Status: Acute Qualifiers: Hypertension type: essential hypertension Qualified Code(s): I10 - Essential (primary) hypertension (6) Hypothyroidism: Levothyroxine 175mcg po daily TSH Status: Acute Additional A&P Information Code Status :Full code DVT PPX:Lovenox Attestations Medical Necessity Statement*: Patient needs to be in hospital for the management of Ac metabolic encephalopathy. Anticipated LOS Greater then 2 midnights. Coding Level of Care Code Acute Extracting Machine Operator for g Fwd Diagnoses Acute encephalopathy G93.40 Type 1 diabetes E10.9 Atrial fibrillation I48.11 Atrial fibrillation type: longstanding persistent CHF (congestive heart failure) I50.32 Heart failure type: diastolic Heart failure chronicity: chronic HTN (hypertension) I10 Hypertension type: essential hypertension Hypothyroidism E03.9
[2020-10-05 15:57] LABS: D Dimer 0.57 ug/mIFEU (0-0.59)
[2020-10-05 16:10] LABS: Digoxin 1.2 ng/mL (0.6-1.2)
[2020-10-05] MEDS: enoxaparin 40 mg/0.4 mL Syringe SUBCUT (16:45)
[2020-10-05] MEDS: dextrose 5%-sod chloride 0.45% 1,000 ML 50 ML IV (16:46)
[2020-10-05 17:05] LABS: Thyroid Stimulating Hormone 0.34 uIU/mL (0.27-4.20)
[2020-10-05 17:22] LABS: Glucose Point of Care 122 mg/dL (70-110)
[2020-10-05 17:35] LABS: Add Urine Microscopic? YES; Bilirubin Urine Neg (Negative); Blood Urine 3+ (Negative); Glucose Urine UA Norm (Normal); Ketones Urine Negative (Negative); Leukocyte Esterase Urine 1+ (Negative); Nitrate Urine Negative (Negative); Protein Urine Neg (Negative); RBC Urine 0-4 /hpf (0-2); Specific Gravity, Urine 1.005 (1.005-1.030); Urine Appearance Cloudy (CLEAR); Urine Color Colorless (Yellow); Urobilinogen Urine Norm (Negative); pH Urine 5 (5-7)
[2020-10-05 17:36] LABS: Add Urine Culture? No; Bacteria Urine 2+ /hpf; Squamous Epithelial Cell Urine 25-40 /hpf (0-5); WBC Urine 15-25 /hpf (0-5)
[2020-10-05 19:54] LABS: Troponin 5 6HR 29.28 ng/L (0-10)
[2020-10-05 19:55] LABS: Troponin 5 6HR Delta -3.72 ng/L (0-12)
[2020-10-05 21:21] LABS: Glucose Point of Care 112 mg/dL (70-110)
--- NOTE | 2020-10-05 23:15 | PC.NURSE ---
Addendum entered by Aretha Gong RN 10/06/20 07:55: 2200; MD Fredi at bedside for rounding and assessment. Original Note: Assuming care; Patient found in bed with sister at bedside during time of shift change. No response to verbal stimuli by nursing staff or family. felt carbonizer found patient to have no set gaze preference and has only slight response to hard sternal rubs. Dr. Cannon at bedside shortly there after for assessment of patient. No new orders at this time received. RN updated family on current and continuing plan of care. All questions answered. 0; RN found patient to have less meaningful response, and no response to firm sternal rub pressure. Patient was moving hands and arms back and forth in no obvious pattern/reasoning. Left sided weakness, and right sided preference noted. What appeared as some left sided facial droop discussed with MD at bedside. New orders to place BIS monitor on patient for observation. 40 result reported to MD. New orders to D/C BIS monitor at this time.
[2020-10-06] VITALS (38 sets, daily range): BP systolic 96–124; BP diastolic 60–95; PULSE 78–105; RESP 10–26; TEMP 36.6–37; O2SAT 91–99
--- NOTE | 2020-10-06 01:45 | PC.NURSE ---
0100 BG; Accucheck not flowing over to patient charge. BG result of 128 recorded.
--- NOTE | 2020-10-06 03:00 | PC.NURSE ---
Keenan irrigation/new placement; Little to no u/o observed on pt. Large amounts of sediment found in keenan bag and catheter. Keenan irrigated with 50mLsterile water with 50mL returned. Copious amounts of sediment returned, with some urine output. Most recently, RN observed patient to still have little u/o. During further assessment, RN found patient to have newly found moderate leak around ekenan cath. New 18F keenan cath placed via sterile procedure. 10mL sterile water instilled. Instant return of 200mL dark yellow cloudy urine in bag.
[2020-10-06 04:23] LABS: Basophils % 0.3 %; Eosinophils # 0.1 10^3/uL (0.0-0.8); Eosinophils % 1.3 %; Hematocrit 42.6 % (37.0-47.0); Hemoglobin 14.2 g/dL (11.5-15.3); Lymphocytes # 1.3 10^3/uL (0.8-4.8); Mean Corpuscular HGB Conc 33.3 g/dL (30.0-36.0); Mean Corpuscular Hemoglobin 30.3 pg (28.0-34.0); Mean Platelet Volume 10.1 fL (7.4-10.4); Monocytes # 1.2 10^3/uL (0.2-0.9); Monocytes % 17.8 %; Neutrophils # 4.11 10^3/uL (1.8-7.7); Neutrophils % 60.4 %; Nucleated Red Blood Cells % 0 %; Platelet Count 200 10^3/cmm (130-400); Red Blood Count 4.68 10^6/uL (4.1-5.3); Red Cell Distribution Width 12.9 % (12.1-15.1); White Blood Count 6.8 10^3/uL (4.0-10.0)
[2020-10-06 04:45] LABS: Alanine Aminotransferase 21 U/L (0-33); Alkaline Phosphatase 114 IU/L (35-105); Aspartate Amino Transferase 37 U/L (0-32); Blood Urea Nitrogen 12 mg/dL (8-23); Calcium 8.6 mg/dL (8.5-10.5); Carbon Dioxide 30 mmol/L (22-29); Chloride 101 mmol/L (98-107); Globulin 2.3 g/dL (1.3-4.6); Glucose 131 mg/dL (65-115); Magnesium 1.8 mg/dL (1.7-2.3); Osmolality Calculated 294 mOsm/kg (285-295); Sodium 141 mmol/L (136-145); Total Bilirubin 0.7 mg/dL (0.15-1.2); Total Protein 5.3 g/dL (6.6-8.7)
[2020-10-06 04:47] LABS: Procalcitonin 0.28 ng/mL (0-0.5)
--- NOTE | 2020-10-06 06:00 | XRR_ITS ---
PROCEDURE INFORMATION: Exam: XR Chest Exam date and time: 10/06/2020 6:00 AM Age: 75 years old Clinical indication: Other: AMS TECHNIQUE: Imaging protocol: XR of the chest. Views: 1 view. COMPARISON: 1. CR (CHEST, ) 10/05/2020 12:37 PM 2. CR XR chest 1V portable [id number] 08/10/2019 3:28:28 PM FINDINGS: Lungs: There are diffuse increased reticular interstitial markings similar to priors. No focal consolidation. Pleural spaces: No visible pleural effusion or pneumothorax. Heart/Mediastinum: Cardiac silhouette upper normal. Bones/joints: No acute bony abnormality. XR/XR chest 1V portable [id number] IMPRESSION: Nonspecific diffuse increased interstitial markings unchanged from priors. No focal consolidation.
--- NOTE | 2020-10-06 07:30 | PC.NURSE ---
Bedside Rounding Hand-off report from night nurse. Pt opens eyes for a short time to tactile and verbal stimuli. no speech. no response to painful stimuli. Noted flexion on hands close to her chest. unable to follow command on hand telephone operator chief. Afib in tele. 2 IV's are intact w/ IVF running on left hand. Jessica catheter draining well to gravity. clear, bright yellow urine. Pt noted to keep moving her feet. Left foot is cooler than right foot. DP and PT on left foot is very diminished. Doppled with faint pulses on Left DP and PT. Pt able to move left foot and right foot. Dr. Cannon is informed to neurovascular assessment. Noted moderate bruise on upper left lateral thigh from prev fall.
[2020-10-06 07:35] LABS: Glucose Point of Care 163 mg/dL (70-110)
[2020-10-06] MEDS: cefTRIAXone 1,000 MG in sodium chloride 0.9% (plus) 50 ML 100 MG IV (07:51)
[2020-10-06] MEDS: dextrose 5%-sod chloride 0.45% 1,000 ML 50 ML IV (11:00)
[2020-10-06 11:48] LABS: Glucose Point of Care 149 mg/dL (70-110)
--- NOTE | 2020-10-06 14:00 | PC.NURSE ---
hand-off report to med surg transfer Report given to [facility].
[2020-10-06 17:24] LABS: Glucose Point of Care 138 mg/dL (70-110)
--- NOTE | 2020-10-06 17:28 | P.PN_ITS ---
Subjective Subjective: Interval history: Patient was seen and examined this morning, has Spontaneous eye opening, Localizes pain, no verbal response.Blood sugar is well controlled. Vitals and labs have remained stable. Vitals/I&O/Wt Last Vital Signs Temp 98.2 F 10/06/20 16:00 Pulse 94 10/06/20 16:00 Resp 18 10/06/20 16:00 BP 102/66 10/06/20 16:00 Pulse Ox 98 10/06/20 16:00 10/06/20 10/06/20 10/06/20 06:59 14:59 22:59 Intake Total 961.667 / 961.667 Output Total 150 / 200 400 / 400 Balance -150 / -50.000 561.667 / 561.667 Weight last 48 hrs Weight 97.522 kg Physical Exam Narrative: EXAM NARRATIVE: GCS : 10 ( Spontaneous eye opening, Localizes pain, no verbal response) HENMT: COMMON NORMALS: normocephalic and atraumatic HEAD & SCALP: normocephalic and atraumatic Chest: CHEST: Yes Symmetrical chest wall rise Resp: COMMON NORMALS: clear to auscultation bilaterally EFFORT & INSPECTION: Yes symmetric chest movement AUSCULTATION: clear to auscultation bilaterally Cardio: OTHER: S1S2 of variable intensity, GI: COMMON NORMALS: Soft to palpation, non-tender, No hepatosplenomegaly present and no masses AUSCULTATION: Yes normoactive bowel sounds PALPATION: Yes Soft to palpation and Yes No hepatosplenomegaly present RECTAL EXAM: deferred Extremity: COMMON NORMALS: no clubbing, cyanosis or edema and no pedal edema Urinary Catheter Management^: Jessica: Cath Placed During This Visit: yes Reason for Continuing Indwelling Catheter: Accurate Measurement of Urinary Output in Critically Ill Patients Urinary Catheter Date of Insertion: 10/05/20 Urinary Catheter Time of Insertion: 17:10 Data : 10/06/20 03:45 10/06/20 03:45 Micro: Microbiology 10/05/20 12:30 Blood Culture - Preliminary Blood NEGATIVE TO DATE 10/05/20 12:30 Blood Culture - Preliminary Blood NEGATIVE TO DATE A&P Assessment and plan (1) Acute encephalopathy: Acute metabolic encephalopathy: Secondary to severe hypoglycemia.r/o other causes Current GCS is:10 CT head wo con: Old infarcts. No acute intracranial finding MRI without contrast. EEG : Current plan is to continue to monitor the patient.She has been able to protect her airways so far. If patient fails to improve then going forward she might need PEG tube, given th e fact that the family agrees to it. Case was briefly discussed with . Status: Acute (2) UTI (urinary tract infection): U/A is dirty. Follow Urine Culture Ceftriaxone 1 gm q24 h daily Status: Acute (3) Type 1 diabetes: LDSSI Monitor FSG D5 1/2 Ns @ 50cc/hr Status: Acute (4) Atrial fibrillation: A.fib not in RVR Currently rate controlled. Status: Acute Qualifiers: Atrial fibrillation type: unspecified Qualified Code(s): I48.91 - Unspecified atrial fibrillation (5) CHF (congestive heart failure): CHF Currently compensated Monitor I/O Daily Weight Status: Acute Qualifiers: Heart failure type: diastolic Heart failure chronicity: chronic Q ualified Code(s): I50.32 - Chronic diastolic (congestive) heart failure (6) HTN (hypertension): Blood Pressure well controlled. Status: Acute Qualifiers: Hypertension type: essential hypertension Qualified Code(s): I10 - Essential (primary) hypertension (7) Hypothyroidism: Levothyroxine 175mcg po daily TSH:0.34 Status: Acute Additional A&P Information Code Status :Full code DVT PPX:Lovenox. Disposition:If she fails to show any improvement in overall mentation she will likely need PEG tube placement. Attestations Medical Necessity Statement*: Patient needs to be in hospital for the management of Ac metabolic encephalopathy. Coding Level of Care Code Acute Torch Shearer for [facility] Diagnoses Acute encephalopathy G93.40 UTI (urinary tract infection) N39.0 Type 1 diabetes E10.9 Atrial fibrillation I48.91 Atrial fibrillation type: unspecified CHF (congestive heart failure) I50.32 Heart failure type: diastolic Heart failure chronicity: chronic HTN (hypertension) I10 Hypertension type: essential hypertension Hypothyroidism E03.9
[2020-10-06] MEDS: enoxaparin 40 mg/0.4 mL Syringe SUBCUT (18:13)
[2020-10-06 20:58] LABS: Glucose Point of Care 198 mg/dL (70-110)
[2020-10-06 23:39] LABS: Hematocrit 44.5 % (37.0-47.0); Hemoglobin 14.6 g/dL (11.5-15.3)
[2020-10-07] VITALS (11 sets, daily range): BP systolic 101–133; BP diastolic 64–85; PULSE 87–108; RESP 15–18; TEMP 36.4–37.5; O2SAT 90–95
[2020-10-07] MEDS: pantoprazole 40 mg SDV IVP ×3 (00:10→22:36)
--- NOTE | 2020-10-07 06:03 | PC.NURSE ---
Pt had large liquid bowel movement a beginning of the shift. The bowel movement was rust colored and had visible blood and a few tiny clots. patient was cleaned and daniel care provided, a sample was collected, Dr. Rai was notified and a picture was sent of the specimen. Dr. Rai ordered a STAT H&H lab draw, started patient on Protonix IVP, and ordered a fecal occult blood test. Lab called this nurse to state that the sample could not be used because it had visible blood in it. was notified that the FOBT was cancelled.
[2020-10-07 06:12] LABS: Basophils % 0.6 %; Eosinophils # 0.1 10^3/uL (0.0-0.8); Eosinophils % 1.4 %; Hemoglobin 14.5 g/dL (11.5-15.3); Lymphocytes # 1.1 10^3/uL (0.8-4.8); Mean Corpuscular Hemoglobin 30.1 pg (28.0-34.0); Mean Corpuscular Volume 91.3 fL (81-99); Mean Platelet Volume 9.4 fL (7.4-10.4); Monocytes % 16.3 %; Neutrophils # 3.98 10^3/uL (1.8-7.7); Neutrophils % 62.9 %; Nucleated Red Blood Cells % 0 %; Platelet Count 200 10^3/cmm (130-400); Red Blood Count 4.82 10^6/uL (4.1-5.3); Red Cell Distribution Width 12.7 % (12.1-15.1); White Blood Count 6.3 10^3/uL (4.0-10.0)
[2020-10-07 06:30] LABS: Alanine Aminotransferase 17 U/L (0-33); Albumin Level 2.8 g/dL (3.5-5.2); Alkaline Phosphatase 113 IU/L (35-105); Anion Gap 13.3 (5-19); Aspartate Amino Transferase 21 U/L (0-32); Blood Urea Nitrogen 9 mg/dL (8-23); Calcium 8.4 mg/dL (8.5-10.5); Carbon Dioxide 26 mmol/L (22-29); Chloride 101 mmol/L (98-107); Creatinine Clr Calc Pharmacy 73.7471; Globulin 2.5 g/dL (1.3-4.6); Glucose 197 mg/dL (65-115); Osmolality Calculated 288 mOsm/kg (285-295); Potassium 3.3 mmol/L (3.5-5.1); Sodium 137 mmol/L (136-145); Total Bilirubin 0.6 mg/dL (0.15-1.2); Total Protein 5.3 g/dL (6.6-8.7)
[2020-10-07 06:34] LABS: Glucose Point of Care 195 mg/dL (70-110)
[2020-10-07] MEDS: cefTRIAXone 1,000 MG in sodium chloride 0.9% (plus) 50 ML 100 MG IV (06:37)
--- NOTE | 2020-10-07 10:28 | MR_ITS ---
WS: [id number] MRI HEAD WITHOUT CONTRAST TECHNIQUE: Sagittal T1, T2 axial, T2 axial FLAIR, axial and coronal T1 images, axial susceptibility w eighted imaging, axial diffusion weighted images, and coronal T2 images were obtained. CLINICAL INFORMATION: ams COMPARISON: MRI FINDINGS: Images degraded by patient motion. Limited study due to patient's condition. FAST imaging was utilize d. No evidence of restricted diffusion to suggest acute ischemia. Ventricular system and basal cisterns are patent. Moderate small vessel changes with moderate parenchymal volume loss similar to previous. 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 No hydrocephalus. Normal road freight conductor ior fossa. Normal vascular flow voids at the skull base. No extra-axial fluid collections. No evidence of mass o r mass effect. Paranasal sinuses are well aerated. Mastoid air cells are well aerated. Small vessel c hanges in the ha. No hemosiderin on susceptibly weighted images. Advanced chronic atrophy temporal lobes and hippocampal formations. MR/MR head wo con* [id number] IMPRESSION: Exam is limited due to patient motion and patient's condition. 1. No evidence of restricted diffusion to suggest acute ischemia. 2. Moderate small vessel changes with moderate parenchymal volume loss. 3. Chronic infarct left parietal lobe with encephalomalacia and gliosis unchan ged. 4. Small vessel changes in the ha. 5. No hydrocephalus. 6. No significant changes from the prior MRI 2018.
[2020-10-07] MEDS: dextrose 5%-sod chloride 0.45% 1,000 ML 50 ML IV (10:36)
[2020-10-07] MEDS: enoxaparin 100 mg/mL Syringe SUBCUT (11:17)
[2020-10-07] MEDS: lidocaine 1% 5 ML in potassium chloride premix 100 ML 50 ML IV (11:17)
[2020-10-07 11:50] LABS: Glucose Point of Care 215 mg/dL (70-110)
--- NOTE | 2020-10-07 12:18 | PC.NURSE ---
Pt left the floor with ambulance at this time for MRI.
--- NOTE | 2020-10-07 13:17 | PC.CHAP ---
Pastoral Care Encounter/Spiritual Assessment Type of Contact [] Declined pocket secretary assembler visit [] Patient/Family/Request visit [] Outpatient visit [] Follow-up visit [] Physician referral [] Code/Alert [] Routine visit [] Staff referral [] Actively dying [] Patient sleeping [] Family support [] [] Out of room [] Palliative care [] [] Receiving care in room [] Pre-surgical visit [] Trauma [] Long length of stay [] ICU visit [] Other: Relational/Emotional Strength [] Patient feels connected with others/family/visitors/staff [] Distress [] Loneliness/isolation [] Abandonment Spirituality of Patient [] Person of Lilliam [] Attends Zoroastrian of their Lilliam [] Believes in Prayer [] Reads Bible or Mandaeism materials [] There are Spiritual issues to be addressed Teacher Emotionally Impaired Interventions [x] Prayer [] Active listening [] Non-anxious presence [] Spiritual/emotional support [] Crisis/trauma care [] Spiritual counseling [] Bereavement support [] Provided bereavement packet [] Provided Bible/devotional materials [] Provided toy/stuffed animal, coloring book to patient or family member [] Provided Communion [] Anointing/[place] [] Salvation [] Completed spiritual assessment [] Other: Impact on Illness or Injury [] Angry [] Fearful [] Anxious [] Often cries [] Exhaustion [] Unable to work [] Unable to attend latter day [] Unable to walk/stand [] Unable to read [] Unable to drive [] Unable to eat/drink [] Unable to sleep [] Unable to be with family [] Patient intubated [] Other: Summary had prayer for complete healing Time spent with patient 10min
--- NOTE | 2020-10-07 13:33 | P.PN_ITS ---
Subjective Subjective: Interval history: Patient was seen this morning, nursing staff at bedside, according to nursing staff, she is a bit more alert, she does not withdraw from pain, but she does withdraw from the light, she does have spontaneous movement of her upper and lower extremities, does not follow commands, does not respond to her name, does not respond to sternal rub I examined patient this morning, pupils are reactive to light, but does have doll's eyes, she does not track light, she does not respond to her name, does not respond to sternal rub, but when I was shining the light in her eye, she was moving her head away for me, she does not withdraw from pain, her Babinski refl exes upward going bilaterally, her blood sugars have been reasonable, she does have some degree of decerebrate posturing, Vitals/I&O/Wt Last Vital Signs Temp 97.5 F L 10/07/20 12:00 Pulse 94 10/07/20 12:00 Resp 18 10/07/20 12:00 BP 128/80 10/07/20 12:00 Pulse Ox 95 10/07/20 12:00 10/06/20 10/07/20 10/07/20 22:59 06:59 14:59 Intake Total 0 / 524.483 7407 / 1050 Output Total 350 / 750 Balance 0 / 561.667 -350 / 352.990 5628 / 1050 Physical Exam Const: COMMON NORMALS: no acute distress; negative for patient oriented x3 and negative for alert EXAM LIMITATIONS: altered mental status ORIENTATION/CONSCIOUSNESS: not awake, not oriented to person, not oriented to place and not oriented to time OTHER: Does not withdraw from pain, does not respond to sternal rub, maintaining her airway, saturations in the high 90s, Resp: COMMON NORMALS: normal respiratory effort, No retractions, No use of accessory muscles and clear to auscultation bilaterally AUSCULTATION: clear to auscultation bilaterally Cardio: COMMON NORMALS: regular rate, regular rhythm, S1 normal heart sound present, S2 normal heart sound present and No murmurs present (Cardio) RATE: regular rate RHYTHM: regular rhythm HEART SOUNDS: S1 normal heart sound present and S2 normal heart sound present GI: COMMON NORMALS: Normal to inspection, nondistended, normoactive bowel sounds present, Soft to palpation and non-tender PALPATION: Yes Soft to palpation Extremity: COMMON NORMALS: no pedal edema Neuro: COMMON NORMALS: negative for patient oriented x3, negative for CN's II- XII intact bilaterally and negative for moves all extremities SENSORIUM/ORIENTATION: No alert, No oriented to person, No oriented to place and No oriented to time OTHER: Pupils are equal, bilateral, minimally reactive to light Doll's eye appearance of bilateral eyes Does not withdraw from pain Babinski's upwards going bilaterally Does pull away from the light Does not follow commands, does not respond to her name Does not respond to sternal rub Urinary Catheter Management^: Jessica: Cath Placed During This Visit: yes Reason for Continuing Indwelling Catheter: Other Urinary Catheter Date of Insertion: 10/05/20 Urinary Catheter Time of Insertion: 17:10 Data : 10/07/20 06:04 10/07/20 06:04 Micro: Microbiology 10/05/20 12:30 Blood Culture - Preliminary Blood NEGATIVE TO DATE 10/05/20 12:30 Blood Culture - Preliminary Blood NEGATIVE TO DATE A&P Assessment and plan (1) Acute encephalopathy: Acute metabolic encephalopathy, acute, of unknown etiology Etiology is unclear, from the history it seems like patient was hypoglycemic throughout the night at home, possible hypoglycemic associated neurologic damage Certainly hypoxic brain injury is a possibility Certainly brainstem stroke or injury is a possibility Current GCS is:10 CT head wo con:There are 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 There is moderate cortical atrophy. Low-density changes in the white matter are consistent with nonspecific small vessel chronic ischemic change. There is no intracranial mass, hemorrhage or edema. MRI without contrast pending EEG : pending Echocardiogram pending Carotid artery ultrasound pending INR pending, received therapeutic Lovenox this morning, hold therapeutic Lovenox, check INR, plan for lumbar puncture tomorrow morning CMV, cryptococcal antigen Neurochecks, aspiration precautions, seizure precautions Able to maintain airway, monitor respiratory status closely Continue D5 half-normal saline at 50 cc Thiamine 100 mg IV daily, cyanocobalamin 1000 mcg daily Will discuss with neurology Status: Acute (2) UTI (urinary tract infection): Follow Urine Culture Ceftriaxone 1 gm q24 h daily Status: Acute (3) Type 1 diabetes: LDSSI Monitor FSG D5 1/2 Ns @ 50cc/hr Status: Acute (4) Atrial fibrillation: A.fib not in RVR Currently rate controlled. Follow INR Received 1 dose of therapeutic Lovenox, continue to hold as planned for a lumbar puncture Status: Acute Qualifiers: Atrial fibrillation type: unspecified Qualified Code(s): I48.91 - Unspecified atrial fibrillation (5) CHF (congestive heart failure): CHF Currently compensated Monitor I/O Daily Weight Status: Acute Qualifiers: Heart failure type: diastolic Heart failure chronicity: chronic Qualified Code(s): I50.32 - Chronic diastolic (congestive) heart failure (6) HTN (hypertension): Blood Pressure well controlled. Status: Acute Qualifiers: Hypertension type: essential hypertension Qualified Code(s): I10 - Essential (primary) hypertension (7) Hypothyroidism: Levothyroxine 175mcg po daily TSH:0.34 Status: Acute (8) Coma of unknown etiology: Status: Acute Additional A&P Information Code Status :Full code DVT PPX:Lovenox. Disposition:If she fails to show any improvement in overall mentation she will likely need PEG tube placement. Attestations Medical Necessity Statement*: Patient requires hospitalization for coma of unknown etiology Coding Level of Care Code Acute Criminal Justice Lawyer for [facility] Fwd Diagnoses Acute encephalopathy G93.40 UTI (urinary tract infection) N39.0 Type 1 diabetes E10.9 Atrial fibrillation I48.91 Atrial fibrillation type: unspecified CHF (congestive heart failure) I50.32 Heart failure type: diastolic Heart failure chronicity: chronic HTN (hypertension) I10 Hypertension type: essential hypertension Hypothyroidism E03.9 Coma of unknown etiology R40.20
--- NOTE | 2020-10-07 13:34 | PC.NURSE ---
Pt returned from MRI at this time with ambulance crew.
--- NOTE | 2020-10-07 14:19 | PC.NURSE ---
NIHSS was completed, pt is nonverbal and does not respond.
[2020-10-07 14:40] LABS: Digoxin 0.6 ng/mL (0.6-1.2)
[2020-10-07 14:42] LABS: INR 5.17 (0.8-1.2)
[2020-10-07 15:18] LABS: Erythrocyte Sedimentation Rate 21 mm/hr (0-15)
--- NOTE | 2020-10-07 15:53 | CTR_ITS ---
PROCEDURE INFORMATION: Exam: CT Abdomen And Pelvis Without Contrast Exam date and time: 10/07/2020 3:53 PM Age: 75 years old Clinical indication: Condition or disease; Kidney or ureter condition; Other: UTI, evalaute for stone TECHNIQUE: Imaging protocol: Computed tomography of the abdomen and pelvis without contrast. Radiation optimization: All CT scans at this facility use at least one of these dose optimization techniques: automated exposure control; mA and/or kV adjustment per patient size (includes targeted exams where dose is matched to clinical indication); or iterative reconstruction. COMPARISON: CR XR chest 1V portable [id number] 10/06/2020 6:53 AM RADIATION DOSE METRICS: Total DLP (mGy-cm): 1878.16 FINDINGS: Lungs: This atelectasis and interstitial scarring in the lung bases. Heart: Mild cardiomegaly. Mediastinal space: Hiatal hernia. Liver: Normal. No mass. Gallbladder and bile ducts: Cholecystectomy. The bile ducts are normal. Pancreas: Normal. No ductal dilation. Spleen: Normal. No splenomegaly. Adrenal glands: Normal. No mass. Kidneys and ureters: Multiple fluid density cysts in the right kidney, Hounsfield units less than 20. No follow-up imaging is recommended. The left kidney is normal. Mild bilateral perinephric stranding is most likely physiologic. No calculus or hydronephrosis. Stomach and bowel: Unremarkable. No obstruction. No mucosal thickening. Appendix: The appendix is not visualized. No secondary signs of appendicitis. Intraperitoneal space: Unremarkable. No free air. No significant fluid collection. Vasculature: Unremarkable. No abdominal aortic aneurysm. Lymph nodes: Subcentimeter retroperitoneal lymph nodes are most likely reactive. Urinary bladder: Jessica catheter in a decompressed urinary bladder. Reproductive: Unremarkable as visualized. Bones/joints: T12 compression fracture, age indeterminate. Scoliosis. Soft tissues: Medication injection site in the anterior right abdominal wall. CT/CT abdomen pelvis wo con [id number] IMPRESSION: 1. No renal calculus or hydronephrosis. 2. Age indeterminate T12 compression fracture. COMMENTS: Consistent with the [employer]'s Incidental Findings Committee white paper (J Am Salina Radiol 2018): Any incidental renal lesion less than 1 cm or classified as too small to characterize, or any incidental cystic renal lesion characterized as simple-appearing, is likely benign. No follow-up imaging is recommended for these lesions per consensus recommendations based on imaging criteria. Radiation Dose CTDIVOL = (mGy): DLP = 1878.16 (mGy-cm)
[2020-10-07 17:05] LABS: Glucose Point of Care 125 mg/dL (70-110)
[2020-10-07] MEDS: phytonadione (ADULT) 10 mg/mL Ampule 1 mL SUBCUT (17:48)
--- NOTE | 2020-10-07 17:51 | PM.MISC ---
Miscellaneous Note Purpose of Documentation: EEG Note: ORDERING PHYSICIAN: Dr. Mitchell. REASON FOR STUDY: Coma. STUDY: This was a 21 channel digital electroencephalogram performed using the 10-20 international system of electrode placement. This study was performed at the bedside and the patient was with eyes open but not responsive. Photic stimulation was performed and had an alerting effect. FINDINGS: The background consisted of high voltage slowing in the 2-3 hz delta range. The cryptologic technician described that her eyes were open but she did not respond to commands and there was no change in the background except during photic stimulation, when her background became mixed fast activity. There were no specific signs of seizure. IMPRESSION:There was severe diffuse slowing at 2-3 hz consistent with diffuse severe brain dysfunction. There was brief almost normal background during photic stimulation. Duration of EE.2
[2020-10-07 18:41] LABS: HIV 1 & 2 Antibody Non-Reactive (Non-Reactiv); HIV 1 & 2 Antigen Non-Reactive (Non-Reactiv)
--- NOTE | 2020-10-07 18:59 | P.CONIM_ITS ---
Providers/Reason For Consult Consulting Physician/Specialty*: Donald Guillen MD Reason for Consult*: Coma Attending Physician: Donald Guillen MD Primary Care Provider: Janae Wiggins MD History of Present Illness History of Present Illness Sandra Richardson is a 75 year old female who was up by EMS at 11 in the morning on 10/05/2020 because she was unresponsive. She was slumped over the toilet with a blood sugar of 30 the night before but after eating she recovered and refused to come to the emergency room. At 10:00 on the morning of admission she had not woken up and her sister could not wake her up and her blood sugar was 41. She received D5 when EMS arrived and her blood glucose was 68. She was still unresponsive when she arrived. She localized to pain. She has remained unresponsive for the last several days and Dr. Meza was concerned that she might be having seizures or another cause for her unresponsiveness. She has never had problems with hypoglycemia in the past. She is followed regularly in cardiac clinic for chronic atrial fibrillation and congestive heart failure and she sees Dr. Ramirez for foot ulcer. Review of Systems Narrative: She has had a normal temperature since she got here. One of the nurses said she was fairly convinced that the patient followed her with her eyes. Meds/Allergies Home Medications and Allergies Home Medications Medication Instructions Recorded Confirmed Last Taken Type furosemide 40 mg PO DAILY 08/10/19 10/05/20 10/04/20 History gabapentin 100 mg PO DAILY 08/10/19 10/05/20 10/04/20 History insulin glargine [Lantus Solostar 50 unit SUBCUT BEDTIME 08/10/19 10/05/20 10/04/20 History U-100 Insulin] insulin lispro [Humalog KwikPen See Rx Instructions .ROUTE .COMPLEX 08/10/19 10/05/20 10/04/20 History Insulin] levothyroxine 175 mcg PO DAILY 08/10/19 10/05/20 10/05/20 History metformin 500 mg PO DAILY 08/10/19 10/05/20 10/04/20 History warfarin 5 mg PO DAILY 08/10/19 10/05/20 10/04/20 History brimonidine 0.2 %-timolol 0.5 % 1 drop OPHTHALMIC (EYE) BID 10/16/19 10/05/20 10/05/20 History eye drops cholecalciferol (vitamin D3) 25 3,000 unit PO DAILY cap 10/16/19 10/05/20 10/04/20 History mcg (1,000 unit) capsule metoprolol succinate 50 mg 50 mg PO BID #180 tab 10/16/19 10/05/20 10/04/20 Rx tablet,extended release 24 hr multivitamin 1 tab PO DAILY 10/16/19 10/05/20 10/04/20 History potassium chloride 20 mEq 20 meq PO DAILY #90 tab 11/17/19 10/05/20 10/04/20 Rx tablet,extended release(part/cryst) digoxin 250 mcg (0.25 mg) tablet 250 mcg PO DAILY #90 tab 08/12/20 10/05/20 10/04/20 Rx gabapentin 300 mg PO BEDTIME 10/05/20 10/05/20 10/04/20 History Allergies Allergy/AdvReac Type Severity Reaction Status Date / Time acetaminophen [From Tylenol] Allergy ALGY-Rash Verified 03/20/20 15:59 aspirin Allergy ALGY-Hives Verified 03/20/20 15:59 ibuprofen Allergy ALGY-Rash Verified 03/20/20 15:59 Penicillins Allergy Unknown Verified 03/20/20 15:59 Current Medications Current Medications Generic Name Dose Route Start Last Admin Trade Name Freq PRN Reason Stop Dose Admin Enoxaparin Sodium 100 mg 10/07/20 10:45 10/07/20 11:17 Enoxaparin 100 Mg/Ml Syringe 1 mg/kg (100 mg) 100 mg SUBCUT Administration Q12H MATT Dextrose/Sodium Chloride 1,000 mls @ 50 mls/hr 10/05/20 15:45 10/07/20 10:36 Dextrose 5%-Sod Chloride 0.45% IV 50 mls/hr .Q20H MATT Administration Ceftriaxone Sodium 1,000 mg/ 50 mls @ 100 mls/hr 10/06/20 07:00 10/07/20 10:00 Sodium Chloride IV Infused Q24H MATT Infusion Protocol Insulin Aspart 0 unit 10/05/20 18:00 10/07/20 17:45 Insulin Aspart 100 Unit/1 Ml SUBCUT Not Given WM&BEDTIME MATT Protocol Pantoprazole Sodium 40 mg 10/06/20 23:15 10/07/20 10:35 Pantoprazole 40 Mg Sdv IVP 40 mg Q12H MATT Administration Thiamine HCl 100 mg 10/07/20 14:00 10/07/20 15:21 Thiamine 100 Mg/Ml Sdv IV 100 mg DAILY MATT Administration PFSH Acute PFSH: Medical History Atrial fibrillation CHF (congestive heart failure) Graves disease HTN (hypertension) Mitral regurgitation Type 1 diabetes Family History Mother Cancer CAD (coronary artery disease) Myocardial infarction Father Myocardial infarction Social History Smoking and tobacco status: never smoked Alcohol intake: never Current occupational status: retired Vitals/I&O/Wt Last Vital Signs Temp 98.6 F 10/07/20 18:30 Pulse 87 10/07/20 18:30 Resp 18 10/07/20 18:30 BP 121/75 10/07/20 18:30 Pulse Ox 95 10/07/20 18:30 10/07/20 10/07/20 10/07/20 06:59 14:59 22:59 Intake Total 1155 / 1155 0 / 1155 Output Total 350 / 750 Balance -350 / 364.891 3398 / 1155 0 / 1155 Physical Exam Narrative: EXAM NARRATIVE: Neurologic exam: General: Obese middle-aged woman lying quietly in bed Mental status exam: She alerted to pinching. She moaned loudly. She would not follow commands but after pinching her several times she began to regard the examiner and followed my face from side to side. Cranial nerves: She did not respond to threat. PERRL. She is managing her own secretions. Facial movements symmetric to grimace during brow pressure. Tongue midline in the mouth. Motor: She briskly withdraws all 4 extremities from nailbed pressure. Deep tendon reflexes: Toes are upgoing bilaterally. HEENT: No rash. Neck: Supple. Chest: Clear to auscultation. Cardiovascular: Heart sounds are normal without murmur or gallop. Abdomen no palpable mass. 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 EEG shows profound diffuse slowing but the patient appeared to be asleep and was awakened by photic stimulation with a nearly normal background. The rest of the record looks like stage III sleep. This could be diffuse slowing from brain dysfunction. No epileptiform changes. A&P Assessment and plan (1) Hypoglycemia, coma: Patient presented in hypoglycemic coma that was probably prolonged and may have lasted almost 12 hours. Prognosis for profound hypoglycemia is poor for meaningful neurologic recovery but she is already thrashing around and moaning and may yet recover some degree of neurologic function. Her EEG is nonspecific but indicates diffuse brain dysfunction. This patient is better than vegetative but her prognosis is guarded. Status: Acute (2) Acute encephalopathy: I do not think there is any mystery about the cause of this patient's encephalopathy. I think she will require long-term care. Status: Acute Coding Level of Care Code Acute [employer] Machine Operator for jessica [facility] Diagnoses Hypoglycemia, coma E15 Acute encephalopathy G93.40
[2020-10-07 20:14] LABS: Folate Level 15.2 ng/mL (4.8-37.3)
[2020-10-07 21:03] LABS: Glucose Point of Care 185 mg/dL (70-110)
[2020-10-07 21:08] LABS: C Reactive Protein 56.4 mg/L (0.0-4.9)
[2020-10-07 21:25] LABS: Vitamin B12 850 pg/mL (232-1245)
[2020-10-07 21:33] LABS: INR 2.93 (0.8-1.2)
[2020-10-07 21:36] LABS: Hepatitis A Antibody IgM Non-Reactive (Nonreactive); Hepatitis B Core IgM Non-Reactive (Nonreactive); Hepatitis B Surface Antigen Non-Reactive (Nonreactive); Hepatitis C Virus Antibody Non-Reactive (Nonreactive)
[2020-10-07 21:51] LABS: Procalcitonin 0.28 ng/mL (0-0.5); Rapid Plasma Reagin Syphilis Nonreactive (Nonreactive); Thyroid Stimulating Hormone 1.73 uIU/mL (0.27-4.20)
[2020-10-07 23:43] LABS: Glucose Point of Care 227 mg/dL (70-110)
[2020-10-08] VITALS (15 sets, daily range): BP systolic 122–151; BP diastolic 77–100; PULSE 79–104; RESP 14–20; TEMP 36.4–37.1; O2SAT 93–97
[2020-10-08] MEDS: phytonadione (ADULT) 10 MG in sodium chloride 0.9% 50 ML 153 MG IV (02:15)
[2020-10-08] MEDS: dextrose 5%-sod chloride 0.45% 1,000 ML 50 ML IV (05:03)
--- NOTE | 2020-10-08 06:00 | USCV_ITS ---
Sandra Richardson Age: 75 Gender: F : 1945 Exam Date: 10/08/2020 06:11 Ordering Phys: Donald Guillen MD Technologist: Carleen Hopson [place] [facility] [place]: Altered mental status BP: 130 / 68 HR: 91 Rhythm: Atrial fibrillation Technical Quality: Adequate MEASUREMENTS (Male / Female) Normal Values 2D ECHO LV Diastolic Diameter PLAX 4.3 cm 4.2 - 5.9 / 3.9 - 5.3 cm LV Systolic Diameter PLAX 3.0 cm IVS Diastolic Thickness 1.4 cm 0.6 - 1.0 / 0.6 - 0.9 cm IVS Systolic Thickness 2.1 cm LVPW Diastolic Thickness 1.5 cm 0.6 - 1.0 / 0.6 - 0.9 cm LVPW Systolic Thickness 2.0 cm LVOT Diameter 2.0 cm LV Ejection Fraction 2D Teich 59.7 % LV Ejection Fraction MOD 2C 47.5 % LV Ejection Fraction 2C AL 48.3 % LA Diameter 4.2 cm LA Width 3.8 cm LA Height 5.3 cm RA Width 3.6 cm RA Height 5.2 cm Aorta at Sinotubular Diameter 3.5 cm M-MODE LV Diastolic Diameter MM 4.4 cm 4.2 - 5.9 / 3.9 - 5.3 cm LV Systolic Diameter MM 2.9 cm LV Ejection Fraction MM Teich 63.7 % IVS Diastolic Thickness MM 1.0 cm 0.6 - 1.0 / 0.6 - 0.9 cm IVS Systolic Thickness MM 0.9 cm LVPW Diastolic Thickness MM 1.6 cm 0.6 - 1.0 / 0.6 - 0.9 cm LVPW Systolic Thickness MM 1.8 cm Aortic Annulus Diameter 3.5 cm LA Ao Ratio MM 1.2 MV E Point Septal Separation 0.6 cm DOPPLER AV Peak Velocity 162.0 cm/s LVOT Peak Velocity 83.7 cm/s AV Area Cont Eq vti 1.7 cm squared AV Area Cont Eq pk 1.6 cm squared MV Area PHT 3.9 cm squared MV E' Velocity 68.5 cm/s Mitral E to MV E' Ratio 10.6 Mitral E to LV E' Lateral Ratio 10.1 Mitral E to LV E' Septal Ratio 11.1 TR Peak Velocity 356.3 cm/s TR Peak Gradient 50.8 mmHg TR Mean Velocity 288.4 cm/s TR Mean Gradient 37.8 mmHg TR Velocity Time Integral 131.7 cm TV Peak E Velocity 78.0 cm/s Right Atrial Pressure 3.0 mmHg Pulmonary Artery Systolic Pressu 53.8 mmHg PV Peak Velocity 101.0 cm/s RV Acceleration Time 0.1 s RV Ejection Time 0.3 s RV AcT/ET 0.3 FINDINGS Left Ventricle Normal left ventricular cavity size. Increased left ventricular wall thickness. Mild concentric left ventricle hypertrophy. Normal left ventricular systolic function. Left ventricular ejection fraction is estimated at 55%. No diagnostic regional wall motion abnormality. Right Ventricle Right ventricle not well visualized. Probably normal right ventricle size and systolic function. Right ventricular systolic pressure 54 mmHg. Right Atrium Moderately increased right atrial size. Right atrial pressure estimated at 8 mmHg. Left Atrium Moderately increased left atrial size. Mitral Valve Mild mitral annular calcification. No mitral valve stenosis. Mild to moderate mitral valve regurgitation. Aortic Valve Aortic valve not well visualized. Somewhat thickened and calcified aortic valve. No aortic valve stenosis. Mild-to- moderate aortic valve regurgitation. Tricuspid Valve Structurally normal tricuspid valve. No tricuspid valve stenosis. Moderate tricuspid valve regurgitation. Pulmonic Valve Pulmonic valve not well visualized. Pericardium No pericardial effusion. Aorta Normal-sized inferior vena cava with decreased respiratory variation. CONCLUSIONS 1. Normal left ventricular cavity size and systolic function. Mild concentric left ventricle hypertrophy. Left ventricular ejection fraction is estimated at 55 %. No diagnostic regional wall motion abnormality. 2. Probably normal right ventricle size and systolic function. 3. Moderate pulmonary hypertension with pulmonary artery pressure estimated at 54 mmHg. 4. Mild to moderate mitral and aortic valve regurgitation. 5. Moderate tricuspid valve regurgitation. 6. When compared to previous echocardiogram dated 11/03/2016, aortic valve regurgitation and tricuspid valve regurgitation seems to have worsened. Becky Lowery MD (Electronically Signed) Final Date: 08 October 2020 11:52 S
--- NOTE | 2020-10-08 06:00 | USCV_ITS ---
Sandra Richardson Age: 75 Gender: F : 1945 Exam Date: 10/08/2020 05:51 Ordering Phys: Donald Guillen MD Technologist: Carleen Hopson [place] [facility] [place]: AMS Risk Factors: Previous Vascular Surgery: Right Brachial BP: / Left Brachial BP: / Right Left Velocity (cm/s) Spectral Plaque Velocity (cm/s) Spectral Plaque Syst/Diast Broadening Syst/Diast Broadening 58.60/ 14.10 Prox CCA 71.50 / 19.10 66.30/ 11.60 Mid CCA 62.40 / 15.80 27.20/ 9.10 Distal CCA 45.40 / 9.90 59.30/ 16.00 Prox ICA 57.80 / 29.60 67.80/ 23.00 Mid ICA 63.80 / 16.40 46.20/ 18.70 Distal ICA 68.40 / 23.00 57.70 ECA 80.20 1.02 ICA/CCA 1.09 Antegrade Vertebral Antegrade 35.00/ 10.40 cm/s 53.10/ 12.50 cm/s Tri Subclavian Tri 68.30 99.20 CONCLUSIONS Right ICA stenosis <50%. Left ICA stenosis <50%. Normal antegrade Doppler flow noted in the right vertebral artery. Normal antegrade Doppler flow noted in the left vertebral artery. Dexter De La Torre MD (Electronically Signed) Final Date: 08 October 2020 17:50 S
[2020-10-08 06:24] LABS: Glucose Point of Care 171 mg/dL (70-110)
[2020-10-08] MEDS: cefTRIAXone 1,000 MG in sodium chloride 0.9% (plus) 50 ML 100 MG IV (06:37)
--- NOTE | 2020-10-08 08:00 | FL_ITS ---
WS: [id number] LUMBAR PUNCTURE CLINICAL INFORMATION: ams COMPARISON: None. TECHNIQUE: Informed consent: The procedure and its potential risk and complications were discussed with the merline ent. Verbal and written consent was obtained. Timeout: A timeout was performed to confirm correct patient, procedure, and site. Patient was prepped and draped in the usual sterile fashion. Lidocaine 1% was used for local anesthes ia. Utilizing fluoroscopic guidance, a 3.5 inch 22-gauge spinal needle was advanced into the subarach noid space at L4-5 via left oblique sublaminar approach. Free flow of clear CSF was obtained. 8 cc of CSF was collected and sent the lab for further analysis. FLUOROSCOPIC TIME: 0.3 minutes. FL/FL guided lumbarpunc dx* [id number] IMPRESSION: Fluoroscopically guided lumbar puncture. No immediate complications
[2020-10-08 08:48] LABS: Basophils % 0.6 %; Eosinophils # 0.1 10^3/uL (0.0-0.8); Eosinophils % 2.7 %; Hematocrit 40.4 % (37.0-47.0); Hemoglobin 13.3 g/dL (11.5-15.3); Lymphocytes % 20.6 %; Mean Corpuscular HGB Conc 32.9 g/dL (30.0-36.0); Mean Corpuscular Hemoglobin 29.8 pg (28.0-34.0); Mean Corpuscular Volume 90.6 fL (81-99); Mean Platelet Volume 10.3 fL (7.4-10.4); Monocytes # 0.8 10^3/uL (0.2-0.9); Monocytes % 17.3 %; Neutrophils % 56.3 %; Nucleated Red Blood Cells % 0 %; Platelet Count 153 10^3/cmm (130-400); Red Blood Count 4.46 10^6/uL (4.1-5.3); Red Cell Distribution Width 12.4 % (12.1-15.1); White Blood Count 4.8 10^3/uL (4.0-10.0)
[2020-10-08 09:01] LABS: INR 1.35 (0.8-1.2)
[2020-10-08 09:08] LABS: Ammonia 21 umol/L (11-51)
[2020-10-08] MEDS: cyanocobalamin 1,000 mcg/mL SDV 1000 MCG IM (09:10)
[2020-10-08 09:18] LABS: NT Pro B Type Natriuretic Pept 898 pg/mL (0-125); Procalcitonin 0.26 ng/mL (0-0.5)
[2020-10-08 09:29] LABS: Alanine Aminotransferase 13 U/L (0-33); Alkaline Phosphatase 110 IU/L (35-105); Anion Gap 16.5 (5-19); Aspartate Amino Transferase 17 U/L (0-32); Blood Urea Nitrogen 8 mg/dL (8-23); Calcium 8.2 mg/dL (8.5-10.5); Carbon Dioxide 26 mmol/L (22-29); Chloride 101 mmol/L (98-107); Creatine Phosphokinase 69 U/L (26-192); Globulin 2.6 g/dL (1.3-4.6); Glucose 187 mg/dL (65-115); Magnesium 1.9 mg/dL (1.7-2.3); Osmolality Calculated 293 mOsm/kg (285-295); Phosphorus 2.5 mg/dL (2.5-4.5); Potassium 3.5 mmol/L (3.5-5.1); Sodium 140 mmol/L (136-145); Total Bilirubin 0.6 mg/dL (0.15-1.2); Total Protein 5.6 g/dL (6.6-8.7)
[2020-10-08 09:37] LABS: Slide Review Slide Review Perform
--- NOTE | 2020-10-08 09:58 | PC.SOCIAL ---
Imm pg.2 Attempted to call patient's sister. Left message and put IMM on patient's bedside table.
[2020-10-08 10:46] LABS: Red Blood Cell CSF 0 10^3/uL (0-0); White Blood Cell CSF 0 /uL (0-5)
[2020-10-08 10:51] LABS: Mononuclear WBC CSF % 0 % (50-90); Polynuclear WBC CSF % 0 % (0-10)
[2020-10-08 10:56] LABS: CSF Specific Gravity 1.015
[2020-10-08] MEDS: pantoprazole 40 mg SDV IVP ×2 (11:08→23:30)
[2020-10-08 11:21] LABS: Glucose CSF 101 mg/dL (40-70); Total Protein CSF 19 mg/dL (15-45)
[2020-10-08 11:27] LABS: Appearance CSF CLEAR (CLEAR); Color CSF COLORLESS (COLORLESS)
[2020-10-08 11:44] LABS: Glucose Point of Care 197 mg/dL (70-110)
--- NOTE | 2020-10-08 15:40 | PM.PN ---
Subjective Subjective: Interval history: Yesterday evening I had a discussion with patient's 2 sisters, they advised me that patient has a history of chronic diarrhea, she is battling for the last 2 years, this proved to be difficult with her insulin regimen, as at times she is hypo and hyperglycemic, her diarrhea has improved for the last few months, her sisters had come down from [place] to help her out, on Wednesday night issues doing okay and her sister thought that maybe the food that they ate at dinner did not sit well with her, she as she went to the bathroom, and she found her sister on the toilet, and her blood sugars were in the low 70s, so they gave her some candies and juice, she will remain responsive, following commands, however then they were worried that she was going to become hypoglycemic, so they gave her the Lantus, they are not sure how much insulin she got, but she is prescribed a 50 unit SQ bedtime dose, then they realized that she got insulin and they are worried about low blood sugar, so they kept giving her's juices and candies, she was responsive, she followed all commands, she is becoming irritable at them at times was refusing to drink juice or eat a candy, this went on to about 2 AM at that time her blood sugars were in the 70s and they let her go to bed. Then roughly 8 hours after at about 10 AM, they checked up on her, and she was not responsive, and her blood sugars were in the 30s, and then EMS was called Her sisters were very tearful, they told me that they do the best they could, they also tell me that at times she does not take her Coumadin, she has had a supratherapeutic INR in the past, as high as 7 Early this morning, patient was examined, she does have spontaneous movement of her upper lower extremities, does get agitated at times, does withdraw from the light, but does not respond to her name, does not respond to sternal rub, at times does not withdraw from pain, Babinski's upwards going, does not have any meaningful responses, pupils are equal and minimally reactive to light I had a family meeting with patient's 2 sisters, I discussed that 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 Her chance of meaningful recovery is questionable, her prognosis is guarded. I discussed options that are available to them. As patient cannot make decisions for herself currently, she does not have a living well, does not have health care however directed. She has no other family members, no children, no . Her next of kin is her 2 sisters. Patient has not verbalized any opinions or decisions about end-of-life care. Options that I advised on are available is giving her time, pursuing full medical intervention including PEG tube placement, and long-term care, to see if she could have neurologic recovery. Were the other option I raised was pursuing comfort care. After discussion of the risks and benefits, they voiced understanding, all questions answered, agreed to proceed for full medical intervention, including PEG tube placement. Advised of the risk and benefits of the procedure, they voiced recently, all questions answered, agreed to proceed. I did advise family that currently she is maintaining her airway, her saturation high 90s on room air. However during the procedure she will need to be intubated, and there is a risk that she might not make it off the ventilator, might have difficulty weaning, and she might require a tracheostomy. Family was advised of the risk and benefits, she voiced understanding, all questions answered, agreed to proceed Vitals/I&O/Wt Last Vital Signs Temp 97.6 F 10/08/20 12:00 Pulse 91 10/08/20 12:00 Resp 14 10/08/20 12:00 BP 151/100 10/08/20 12:00 Pulse Ox 94 10/08/20 12:00 10/08/20 10/08/20 10/08/20 06:59 14:59 22:59 Intake Total 1147.5 / 2619.5 101 / 101 Output Total 500 / 500 Balance 647.5 / 2119.5 101 / 101 Physical Exam Const: COMMON NORMALS: no acute distress; negative for patient oriented x3 and negative for alert EXAM LIMITATIONS: altered mental status ORIENTATION/CONSCIOUSNESS: not awake, not oriented to person, not oriented to place and not oriented to time OTHER: Does not withdraw from pain, does not respond to sternal rub, maintaining her airway, saturations in the high 90s, Resp: COMMON NORMALS: normal respiratory effort, No retractions, No use of accessory muscles and clear to auscultation bilaterally AUSCULTATION: clear to auscultation bilaterally Cardio: COMMON NORMALS: regular rate, regular rhythm, S1 normal heart sound present and S2 normal heart sound present RATE: regular rate RHYTHM: regular rhythm HEART SOUNDS: S1 normal heart sound present and S2 normal heart sound present GI: COMMON NORMALS: Normal to inspection, nondistended, normoactive bowel sounds present and Soft to palpation PALPATION: Yes Soft to palpation Extremity: COMMON NORMALS: no pedal edema Neuro: COMMON NORMALS: negative for patient oriented x3, negative for CN's II-XII intact bilaterally and negative for moves all extremities SENSORIUM/ORIENTATION: No alert, No oriented to person, No oriented to place and No oriented to time OTHER: Pupils are equal, bilateral, minimally reactive to light Doll's eye appearance of bilateral eyes Does not withdraw from pain Babinski's upwards going bilaterally Does pull away from the light Does not follow commands, does not respond to her name Does not respond to sternal rub Urinary Catheter Management^: Jessica: Cath Placed During This Visit: yes Reason for Continuing Indwelling Catheter: Other Urinary Catheter Date of Insertion: 10/05/20 Urinary Catheter Time of Insertion: 17:10 Data : 10/08/20 08:40 10/08/20 08:40 Micro: Microbiology 10/07/20 14:51 Blood Culture - Preliminary Blood NEGATIVE TO DATE 10/07/20 14:47 Blood Culture - Preliminary Blood NEGATIVE TO DATE 10/08/20 10:08 Gram Stain - Final Cerebrospinal Fluid Cryptococcal Antigen - Final A&P Assessment and plan (1) Acute encephalopathy: Acute metabolic encephalopathy, acute, likely secondary to prolonged hypoglycemia Etiology is likely secondary to prolonged hypoglycemia, neurologic injury and damage associated Current GCS is:10 CT head wo con:There are 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 There is moderate cortical atrophy. Low-density changes in the white matter are consistent with nonspecific small vessel chronic ischemic change. There is no intracranial mass, hemorrhage or edema. MRI MRI of the brain shows chronic infarct left parietal lobe, with encephalomalacia, no acute findings EEG : There was severe diffuse slowing at 2-3 hz consistent with diffuse severe brain dysfunction. There was brief almost normal background during photic stimulation Echocardiogram EF of 55%, no regional wall motion abnormalities, pulmonary hypertension moderate, mild to moderate mitral and aortic valve regurg, moderate tricuspid valve regurg Carotid artery ultrasound pending Lumbar puncture, clear, colorless, 0 WBCs, 0 RBC, Gram stain no white blood cells, no organisms, culture pending, cryptococcal antigen negative CMV pending Neurochecks, aspiration precautions, seizure precautions Able to maintain airway, monitor respiratory status closely Continue D5 half-normal saline at 50 cc Thiamine 100 mg IV daily, cyanocobalamin 1000 mcg daily Neurology on consult Plan for n.p.o. midnight, PEG tube placement tomorrow Working on placement Full code SCDs for DVT prophylaxis Currently INR 1.3, Lovenox on hold given history of lumbar puncture, hold for 24 hours, will have PEG tube placement tomorrow, will hold for that reason also Plan for today, continue to monitor neurologic function, continued fluid, continue antibiotics, n.p.o. for PEG tube placement Status: Acute (2) UTI (urinary tract infection): Follow Urine Culture Ceftriaxone 1 gm q24 h daily Status: Acute (3) Type 1 diabetes: LDSSI Monitor FSG D5 1/2 Ns @ 50cc/hr Status: Acute (4) Atrial fibrillation: A.fib not in RVR Currently rate controlled. Follow INR Received 1 dose of therapeutic Lovenox, continue to hold as planned for a lumbar puncture Status: Acute Qualifiers: Atrial fibrillation type: unspecified Qualified Code(s): I48.91 - Unspecified atrial fibrillation (5) CHF (congestive heart failure): CHF Currently compensated Monitor I/O Daily Weight Status: Acute Qualifiers: Heart failure type: diastolic Heart failure chronicity: chronic Qualified Code(s): I50.32 - Chronic diastolic (congestive) heart failure (6) HTN (hypertension): Blood Pressure well controlled. Status: Acute Qualifiers: Hypertension type: essential hypertension Qualified Code(s): I10 - Essential (primary) hypertension (7) Hypothyroidism: IV levothyroxine 87.5 mcg daily TSH:0.34 Status: Acute (8) Coma of unknown etiology: Status: Acute Additional A&P Information Code Status :Full code DVT PPX:Lovenox. Disposition:If she fails to show any improvement in overall mentation she will likely need PEG tube placement. Attestations Medical Necessity Statement*: Patient requires hospitalization for acute encephalopathy, neurologic injury related hypoglycemia, proceeding with PEG tube placement Coding Level of Care Code Acute Human Resources Executive Assistant for [facility] Fwd Diagnoses Acute encephalopathy G93.40 UTI (urinary tract infection) N39.0 Type 1 diabetes E10.9 Atrial fibrillation I48.91 Atrial fibrillation type: unspecified CHF (congestive heart failure) I50.32 Heart failure type: diastolic Heart failure chronicity: chronic HTN (hypertension) I10 Hypertension type: essential hypertension Hypothyroidism E03.9 Coma of unknown etiology R40.20
[2020-10-08 17:44] LABS: Glucose Point of Care 166 mg/dL (70-110)
[2020-10-08] MEDS: sodium chloride 0.9% 1,000 ML 30 ML IV (19:12)
[2020-10-08 20:50] LABS: Glucose Point of Care 189 mg/dL (70-110)
--- NOTE | 2020-10-08 21:15 | PC.NURSE ---
pts blood sugar was 76, gave pt 118 ml orange juice per nurse request, 20 minutes later blood sugar was 102
[2020-10-09] VITALS (10 sets, daily range): BP systolic 127–150; BP diastolic 72–110; PULSE 71–94; RESP 12–21; TEMP 36.2–37.1; O2SAT 91–97
[2020-10-09] MEDS: dextrose 5%-sod chloride 0.45% 1,000 ML 50 ML IV ×2 (02:31→22:52)
[2020-10-09] MEDS: cefTRIAXone 1,000 MG in sodium chloride 0.9% (plus) 50 ML 100 MG IV (06:17)
[2020-10-09 07:07] LABS: Glucose Point of Care 166 mg/dL (70-110)
[2020-10-09] MEDS: levothyroxine 100 mcg SDV 87.5 MCG IVP (08:15)
[2020-10-09] MEDS: cyanocobalamin 1,000 mcg/mL SDV 1000 MCG IM (08:15)
[2020-10-09 08:58] LABS: Basophils % 0.4 %; Eosinophils # 0.1 10^3/uL (0.0-0.8); Hematocrit 41.4 % (37.0-47.0); Hemoglobin 13.7 g/dL (11.5-15.3); Lymphocytes # 0.9 10^3/uL (0.8-4.8); Lymphocytes % 18.1 %; Mean Corpuscular HGB Conc 33.1 g/dL (30.0-36.0); Mean Corpuscular Hemoglobin 29.8 pg (28.0-34.0); Mean Corpuscular Volume 90.2 fL (81-99); Mean Platelet Volume 9.4 fL (7.4-10.4); Monocytes # 0.6 10^3/uL (0.2-0.9); Neutrophils # 3.04 10^3/uL (1.8-7.7); Neutrophils % 61.8 %; Nucleated Red Blood Cells % 0 %; Platelet Count 187 10^3/cmm (130-400); Red Blood Count 4.59 10^6/uL (4.1-5.3); Red Cell Distribution Width 12.5 % (12.1-15.1); White Blood Count 4.9 10^3/uL (4.0-10.0)
[2020-10-09 09:30] LABS: Alanine Aminotransferase 12 U/L (0-33); Albumin Level 2.9 g/dL (3.5-5.2); Alkaline Phosphatase 111 IU/L (35-105); Anion Gap 13.3 (5-19); Aspartate Amino Transferase 15 U/L (0-32); Blood Urea Nitrogen 8 mg/dL (8-23); C Reactive Protein 33.3 mg/L (0.0-4.9); Calcium 8.3 mg/dL (8.5-10.5); Carbon Dioxide 28 mmol/L (22-29); Chloride 101 mmol/L (98-107); Creatine Phosphokinase 36 U/L (26-192); Creatinine Clr Calc Pharmacy 73.7471; Globulin 2.4 g/dL (1.3-4.6); Glucose 191 mg/dL (65-115); Magnesium 1.8 mg/dL (1.7-2.3); Osmolality Calculated 291 mOsm/kg (285-295); Phosphorus 2.7 mg/dL (2.5-4.5); Potassium 3.3 mmol/L (3.5-5.1); Sodium 139 mmol/L (136-145); Total Bilirubin 0.5 mg/dL (0.15-1.2); Total Protein 5.3 g/dL (6.6-8.7)
[2020-10-09 09:39] LABS: INR 1.13 (0.8-1.2)
[2020-10-09] MEDS: pantoprazole 40 mg SDV IVP ×2 (13:17→23:37)
[2020-10-09] MEDS: lidocaine 1% 5 ML in potassium chloride premix 100 ML 50 ML IV (13:18)
[2020-10-09] MEDS: enoxaparin 100 mg/mL Syringe SUBCUT (13:18)
[2020-10-09 13:28] LABS: Cytomegalovirus Antibody (IGG) >10.00 U/mL; Cytomegalovirus Antibody (IGM) <30.00 AU/mL
[2020-10-09 13:41] LABS: Glucose Point of Care 179 mg/dL (70-110)
--- NOTE | 2020-10-09 15:38 | P.PN_ITS ---
Subjective Subjective: Interval history: Patient C. difficile came back positive she is a high aspiration risk, and she cannot swallow pills This morning patient did open her eyes to her name, she did follow me somewhat around the room, her pupils are equal round reactive light, she did not really respond to her name, she does not really respond to sternal rub, she does not withdraw from pain, does not follow commands, but is more responsive, I had a discussion with patient's family this afternoon: -Initially patient's family would like patient to be transferred for second opinion, second opinion from neurologist, second opinion about PEG tube, they want to give her more time -Thus I had called Dr. Wall, and canceled PEG tube placement for today -In complying with patient's family request, they recommended for transfer to [facility] or [facility], I did call both these facilities, however they are full, and they will only take patients on time critical diagnosis, [facility] oes not take patients on to the neurology service unless they require ICU, this is what I was told -I received a list of other hospitals patient's family would like patient be transferred to -However currently patient has a C. difficile infection, and she requires some sort of method to get her to the oral antibiotic she requires, as she is high risk of worsening infection, fulminant colitis, bowel perforation -I offered NG tube placement, discussed the risks and benefits, they voiced understanding, all questions answered, declined nasogastric tube placement -TPN and PPN, does provide a bridge to a more permanent form of feeding, but its only temporary, and there is no option to give medications that she requires such as blood thinners, antibiotics, thyroid medications, blood pressure medi cations -I discussed PEG tube placement again with patient's family, discussed the risks and benefits, they voiced understanding, all questions answered, agreed to have PEG tube placed -I again spoke to Dr. Wall, he agrees to place PEG tomorrow morning -After PEG tube is placed, patient is receiving treatment for C. difficile infection, will proceed to transfer to other facilities Vitals/I&O/Wt Last Vital Signs Temp 98.2 F 10/09/20 12:00 Pulse 90 10/09/20 12:00 Resp 18 10/09/20 12:00 BP 138/91 10/09/20 12:00 Pulse Ox 94 10/09/20 12:00 10/09/20 10/09/20 10/09/20 06:59 14:59 22:59 Intake Total 1000 / 1101 50 / 50 105 / 155 Output Total 560 / 560 Balance 440 / 541 50 / 50 105 / 155 Physical Exam Narrative: EXAM NARRATIVE: More responsive, does open, she does follow me around the room a bit, does not really follow commands Const: OTHER: Does not withdraw from pain, does not respond to sternal rub, maintaining her airway, saturations in the high 90s, Resp: COMMON NORMALS: normal respiratory effort, No retractions, No use of accessory muscles and clear to auscultation bilaterally AUSCULTATION: clear to auscultation bilaterally Cardio: COMMON NORMALS: regular rate, regular rhythm, S1 normal heart sound present and S2 normal heart sound present RATE: regular rate RHYTHM: regular rhythm HEART SOUNDS: S1 normal heart sound present and S2 normal heart sound present GI: COMMON NORMALS: Normal to inspection, nondistended, normoactive bowel sounds present and Soft to palpation PALPATION: Yes Soft to palpation Extremity: COMMON NORMALS: no pedal edema Urinary Catheter Management^: Jessica: Cath Placed During This Visit: yes Reason for Continuing Indwelling Catheter: Accurate Measurement of Urinary Output in Critically Ill Patients Urinary Catheter Date of Insertion: 10/05/20 Urinary Catheter Time of Insertion: 17:10 Data : 10/09/20 08:23 10/09/20 08:23 Micro: Microbiology 10/08/20 10:08 Gram Stain - Final Cerebrospinal Fluid CSF Culture - Preliminary Cryptococcal Antigen - Final 10/07/20 18:00 Urine Culture - Preliminary Urine Catheterized 10/08/20 10:50 C.difficile Toxin B Gene (PCR) - Final Stool 10/07/20 14:51 Blood Culture - Preliminary Blood NEGATIVE TO DATE 10/07/20 14:47 Blood Culture - Preliminary Blood NEGATIVE TO DATE A&P Assessment and plan (1) Acute encephalopathy: Acute metabolic encephalopathy, acute, likely secondary to prolonged hypoglycemia Etiology is likely secondary to prolonged hypoglycemia, neurologic injury and damage associated Current GCS is:10 CT head wo con:There are 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 There is moderate cortical atrophy. Low-density changes in the white matter are consistent with nonspecific small vessel chronic ischemic change. There is no intracranial mass, hemorrhage or edema. MRI MRI of the brain shows chronic infarct left parietal lobe, with encephalomalacia, no acute findings EEG : There was severe diffuse slowing at 2-3 hz consistent with diffuse severe brain dysfunction. There was brief almost normal background during photic stimulation Echocardiogram EF of 55%, no regional wall motion abnormalities, pulmonary hypertension moderate, mild to moderate mitral and aortic valve regurg, moderate tricuspid valve regurg Carotid artery ultrasound pending Lumbar puncture, clear, colorless, 0 WBCs, 0 RBC, Gram stain no white blood cells, no organisms, culture pending, cryptococcal antigen negative CMV pending Neurochecks, aspiration precautions, seizure precautions Able to maintain airway, monitor respiratory status closely Continue D5 half-normal saline at 50 cc Thiamine 100 mg IV daily, cyanocobalamin 1000 mcg daily Neurology on consult Plan for n.p.o. midnight, PEG tube placement tomorrow Working on placement Full code SCDs for DVT prophylaxis Currently INR 1.13, patient did recieve one dose of therapeutic lovenox today, hold for surgery tommorow Plan for today, continue monitor neurologic function, continued fluid,, n.p.o. for PEG tube placement Status: Acute (2) UTI (urinary tract infection): Follow Urine Culture Ceftriaxone 1 gm q24 h daily Status: Acute (3) Type 1 diabetes: LDSSI Monitor FSG D5 1/2 Ns @ 50cc/hr Status: Acute (4) Atrial fibrillation: A.fib not in RVR Currently rate controlled. Follow INR Received 1 dose of therapeutic Lovenox, continue to hold as planned for a lumbar puncture Status: Acute Qualifiers: Atrial fibrillation type: unspecified Qualified Code(s): I48.91 - Unspecified atrial fibrillation (5) CHF (congestive heart failure): CHF Currently compensated Monitor I/O Daily Weight Status: Acute Qualifiers: Heart failure type: diastolic Heart failure chronicity: chronic Qualified Code(s): I50.32 - Chronic diastolic (congestive) heart failure (6) HTN (hypertension): Blood Pressure well controlled. Status: Acute Qualifiers: Hypertension type: essential hypertension Qualified Code(s): I10 - Essential (primary) hypertension (7) Hypothyroidism: IV levothyroxine 87.5 mcg daily TSH:0.34 Status: Acute (8) Coma of unknown etiology: Status: Acute (9) C. difficile colitis: -Patient according to family members has been complaining of explosive diarrhea for the last 2 weeks -C. difficile positive, start vancomycin through PEG tube once placed Status: Acute Additional A&P Information Code Status :Full code DVT PPX:Lovenox. Disposition:If she fails to show any improvement in overall mentation she will likely need PEG tube placement. 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 difficile colitis A04.72
[2020-10-09 17:55] LABS: Glucose Point of Care 189 mg/dL (70-110)
[2020-10-09 20:55] LABS: Glucose Point of Care 205 mg/dL (70-110)
[2020-10-10] VITALS (19 sets, daily range): BP systolic 107–136; BP diastolic 75–104; PULSE 75–118; RESP 12–18; TEMP 36.4–36.6; O2SAT 92–97
[2020-10-10 06:12] LABS: Basophils % 0.4 %; Eosinophils # 0.1 10^3/uL (0.0-0.8); Eosinophils % 3.1 %; Hematocrit 39.7 % (37.0-47.0); Hemoglobin 13.2 g/dL (11.5-15.3); Lymphocytes % 22.4 %; Mean Corpuscular HGB Conc 33.2 g/dL (30.0-36.0); Mean Corpuscular Hemoglobin 29.3 pg (28.0-34.0); Mean Corpuscular Volume 88.2 fL (81-99); Mean Platelet Volume 9.4 fL (7.4-10.4); Monocytes # 0.6 10^3/uL (0.2-0.9); Monocytes % 12.3 %; Neutrophils # 2.55 10^3/uL (1.8-7.7); Neutrophils % 57.1 %; Nucleated Red Blood Cells % 0 %; Platelet Count 174 10^3/cmm (130-400); Red Cell Distribution Width 12.2 % (12.1-15.1); White Blood Count 4.5 10^3/uL (4.0-10.0)
[2020-10-10] MEDS: cefTRIAXone 1,000 MG in sodium chloride 0.9% (plus) 50 ML 100 MG IV (06:16)
[2020-10-10 06:23] LABS: INR 1.13 (0.8-1.2)
[2020-10-10 06:32] LABS: Alanine Aminotransferase 11 U/L (0-33); Albumin Level 2.9 g/dL (3.5-5.2); Alkaline Phosphatase 112 IU/L (35-105); Anion Gap 11.5 (5-19); Aspartate Amino Transferase 15 U/L (0-32); Blood Urea Nitrogen 9 mg/dL (8-23); C Reactive Protein 25.3 mg/L (0.0-4.9); Calcium 8.3 mg/dL (8.5-10.5); Carbon Dioxide 30 mmol/L (22-29); Chloride 100 mmol/L (98-107); Creatinine Clr Calc Pharmacy 73.7471; Globulin 2.4 g/dL (1.3-4.6); Glucose 214 mg/dL (65-115); Magnesium 1.8 mg/dL (1.7-2.3); Osmolality Calculated 291 mOsm/kg (285-295); Phosphorus 2.5 mg/dL (2.5-4.5); Potassium 3.5 mmol/L (3.5-5.1); Sodium 138 mmol/L (136-145); Total Bilirubin 0.6 mg/dL (0.15-1.2); Total Protein 5.3 g/dL (6.6-8.7)
[2020-10-10 06:51] LABS: Glucose Point of Care 217 mg/dL (70-110)
[2020-10-10 06:57] LABS: Creatine Phosphokinase 26 U/L (26-192)
[2020-10-10 07:04] LABS: Procalcitonin 0.11 ng/mL (0-0.5)
[2020-10-10] MEDS: cyanocobalamin 1,000 mcg/mL SDV 1000 MCG IM (08:49)
[2020-10-10] MEDS: levothyroxine 100 mcg SDV 87.5 MCG IVP (08:50)
--- NOTE | 2020-10-10 10:45 | PC.SOCIAL ---
IMM Update Attempted to call patient's sister to update her about Medicare rights. Left message and left updated IMM at patient's bedside.
[2020-10-10 11:05] LABS: Glucose Point of Care 212 mg/dL (70-110)
[2020-10-10] MEDS: pantoprazole 40 mg SDV IVP ×2 (11:20→22:17)
--- NOTE | 2020-10-10 11:32 | PC.CHAP ---
Pastoral Care Encounter/Spiritual Assessment Type of Contact [] Declined record maker visit [] Patient/Family/Request visit [] Outpatient visit [] Follow-up visit [] Physician referral [] Code/Alert [] Routine visit [] Staff referral [] Actively dying [] Patient sleeping [] Family support [] [] Out of room [] Palliative care [] [] Receiving care in room [] Pre-surgical visit [] Trauma [] Long length of stay [] ICU visit [x] Other: Isolation Relational/Emotional Strength [] Patient feels connected with others/family/visitors/staff [] Distress [] Loneliness/isolation [] Abandonment Spirituality of Patient [] Person of Lilliam [] Attends Advent of their Lilliam [] Believes in Prayer [] Reads Bible or Tenriism materials [] There are Spiritual issues to be addressed Shipping Packer Interventions [] Prayer [] Active listening [] Non-anxious presence [] Spiritual/emotional support [] Crisis/trauma care [] Spiritual counseling [] Bereavement support [] Provided bereavement packet [] Provided Bible/devotional materials [] Provided toy/stuffed animal, coloring book to patient or family member [] Provided Communion [] Anointing/[place] [] Salvation [] Completed spiritual assessment [] Other: Impact on Illness or Injury [] Angry [] Fearful [] Anxious [] Often cries [] Exhaustion [] Unable to work [] Unable to attend yazidi [] Unable to walk/stand [] Unable to read [] Unable to drive [] Unable to eat/drink [] Unable to sleep [] Unable to be with family [] Patient intubated [] Other: Summary Isolation Time spent with patient mins
--- NOTE | 2020-10-10 13:57 | P.ANESASSM_ITS ---
Pre-Anesthetic Assessment Pre-Anesthetic Assessment: Height/Weight: Height 1.68 m Weight 97.522 kg Temp Pulse Resp BP Pulse Ox 97.6 F 80 18 134/104 95 10/10/20 12:12 10/10/20 13:48 10/10/20 13:48 10/10/20 13:48 10/10/20 13:48 Preop Diagnosis: altered mental status Proposed Procedure: Operation Date: 10/09/20 15:35 Proposed Procedures p PEG Tube Insertion(Not Applicable) - Lalo Wall MD Operation Date: 10/10/20 12:35 Proposed Procedures p PEG Tube Insertion(Not Applicable) - Lalo Wall MD Was Beta Tammie taken within 24 hours: Yes Was Clonidine taken within 24 hours: N/A Social: Social History: No alcohol and No tobacco Exam: Pre-Anes Outpt Exam: clear to auscultation bilaterally and regular rate & rhythm Additional Exam Findings (including area of procedure): comatose Airway: Submandibular: WNL Cervical ROM: WNL MP: 2 Dentition: False CV/HEM: CV/HEM: Afib, CHF and HTN Comments: MVP GI: Comments: C.diff Metabolic: Metabolic: DM and Thyroid Neuropsych: Comments: Hypoglycemic encephalopathy Anesthetic Plan: ASA status: 3 Anesthesia: General Risk of > 500 ml bl ood loss (7ml/kg in children): No Meds/Allergies Current Medications: Current Medications Generic Name Dose Route Start Last Admin Trade Name Freq PRN Reason Stop Dose Admin Cyanocobalamin 1,000 mcg 10/08/20 09:00 10/10/20 08:49 Cyanocobalamin 1 ,000 Mcg/Ml Sdv IM 1,000 mcg DAILY MATT Administration Dextrose/Sodium Ch loride 1,000 mls @ 50 ml s/hr 10/05/20 15:45 10/09/20 22:52 Dextrose 5%-Sod Chloride 0.45% IV 50 mls/hr .Q20H MATT Administration Insulin Aspart 0 unit 10/05/20 18:00 10/10/20 11:17 Insulin Aspart 1 00 Unit/1 Ml SUBCUT 4 unit WM&BEDTIME MATT Administration Protocol Levothyroxine Sodi um 87.5 mcg 10/08/20 16:15 10/10/20 08:50 Levothyroxine 10 0 Mcg Sdv IVP 87.5 mcg DAILY MATT Administration Pantoprazole Sodiu m 40 mg 10/06/20 23:15 10/10/20 11:20 Pantoprazole 40 Mg Sdv IVP 40 mg Q12H MATT Administration Thiamine HCl 100 mg 10/07/20 14:00 10/10/20 08:49 Thiamine 100 Mg/ Ml Sdv IV 100 mg DAILY MATT Administration Vancomycin HCl 125 mg 10/09/20 17:00 10/10/20 13:39 Vancomycin 1,000 Mg Oral Karla (Btl) PO Not Given QID MATT PFSH Anesthesia PFSH: Medical History Atrial fibrillation CHF (congestive heart failure) Graves disease HTN (hypertension) Mitral regurgitation Type 1 diabetes Family History Mother Cancer CAD (coronary artery disease) Myocardial infarction Father Myocardial infarction Social History Smoking and tobacco status: never smoked Alcohol intake: never Current occupational status: retired Data Anesthesia CBC & Chem 7: 10/10/20 05:57 10/10/20 05:57 Other Labs: Laboratory Results - last 48 hr 10/07/20 10/08/20 10/08/20 14:51 17:41 20:47 WBC RBC Hgb Hct MCV MCH MCHC RDW Plt Count MPV Neut % (Auto) Lymph % (Auto) Wilson % (Auto) Eos % (Auto) Baso % (Auto) Neut # (Auto) Lymph # (Auto) Wilson # (Auto) Eos # (Auto) Baso # (Auto) Nucleated RBC % (auto) Nucleated RBCs # PT INR Sodium Potassium Chloride Carbon Dioxide Anion Gap BUN Creatinine GFR Calculation Glucose POC Glucose 166 H 189 H Calculated Osmolality Calcium Phosphorus Magnesium Total Bilirubin AST ALT Alkaline Phosphatase Creatine Kinase C-Reactive Protein Total Protein Albumin Globulin Procalcitonin CMV IgG Ab >10.00 H CMV IgM Ab <30.00 10/09/20 10/09/20 10/09/20 06:58 08:23 08:23 WBC 4.9 RBC 4.59 Hgb 13.7 Hct 41.4 MCV 90.2 MCH 29.8 MCHC 33.1 RDW 12.5 Plt Count 187 MPV 9.4 Neut % (Auto) 61.8 Lymph % (Auto) 18.1 Wilson % (Auto) 13.0 Eos % (Auto) 2.0 Baso % (Auto) 0.4 Neut # (Auto) 3.04 Lymph # (Auto) 0.9 Wilson # (Auto) 0.6 Eos # (Auto) 0.1 Baso # (Auto) 0.0 Nucleated RBC % (auto) 0 Nucleated RBCs # 0.0 PT INR Sodium 139 Potassium 3.3 L Chloride 101 Carbon Dioxide 28 Anion Gap 13.3 BUN 8 Creatinine 0.7 GFR Calculation Not Reportable Glucose 191 H POC Glucose 166 H Calculated Osmolality 291 Calcium 8.3 L Phosphorus 2.7 Magnesium 1.8 Total Bilirubin 0.5 AST 15 ALT 12 Alkaline Phosphatase 111 H Creatine Kinase 36 C-Reactive Protein 33.3 H Total Protein 5.3 L Albumin 2.9 L Globulin 2.4 Procalcitonin 0.10 CMV IgG Ab CMV IgM Ab 10/09/20 10/09/20 10/09/20 08:23 08:23 13:37 WBC RBC Hgb Hct MCV MCH MCHC RDW Plt Count MPV Neut % (Auto) Lymph % (Auto) Wilson % (Auto) Eos % (Auto) Baso % (Auto) Neut # (Auto) Lymph # (Auto) Wilson # (Auto) Eos # (Auto) Baso # (Auto) Nucleated RBC % (auto) Nucleated RBCs # PT 14.80 INR 1.13 Sodium Potassium Chloride Carbon Dioxide Anion Gap BUN Creatinine GFR Calculation Glucose POC Glucose 179 H Calculated Osmolality Calcium Phosphorus Magnesium Total Bilirubin AST ALT Alkaline Phosphatase Creatine Kinase Cancelled C-Reactive Protein Total Protein Albumin Globulin Procalcitonin Cancelled CMV IgG Ab CMV IgM Ab 10/09/20 10/09/20 10/10/20 17:42 20:23 05:57 WBC 4.5 RBC 4.50 Hgb 13.2 Hct 39.7 MCV 88.2 MCH 29.3 MCHC 33.2 RDW 12.2 Plt Count 174 MPV 9.4 Neut % (Auto) 57.1 Lymph % (Auto) 22.4 Wilson % (Auto) 12.3 Eos % (Auto) 3.1 Baso % (Auto) 0.4 Neut # (Auto) 2.55 Lymph # (Auto) 1.0 Wilson # (Auto) 0.6 Eos # (Auto) 0.1 Baso # (Auto) 0.0 Nucleated RBC % (auto) 0 Nucleated RBCs # 0.0 PT INR Sodium Potassium Chloride Carbon Dioxide Anion Gap BUN Creatinine GFR Calculation Glucose POC Glucose 189 H 205 H Calculated Osmolality Calcium Phosphorus Magnesium Total Bilirubin AST ALT Alkaline Phosphatase Creatine Kinase C-Reactive Protein Total Protein Albumin Globulin Procalcitonin CMV IgG Ab CMV IgM Ab 10/10/20 10/10/20 10/10/20 05:57 05:57 05:57 WBC RBC Hgb Hct MCV MCH MCHC RDW Plt Count MPV Neut % (Auto) Lymph % (Auto) Wilson % (Auto) Eos % (Auto) Baso % (Auto) Neut # (Auto) Lymph # (Auto) Wilson # (Auto) Eos # (Auto) Baso # (Auto) Nucleated RBC % (auto) Nucleated RBCs # PT 14.80 INR 1.13 Sodium 138 Potassium 3.5 Chloride 100 Carbon Dioxide 30 H Anion Gap 11.5 BUN 9 Creatinine 0.8 GFR Calculation Not Reportable Glucose 214 H POC Glucose Calculated Osmolality 291 Calcium 8.3 L Phosphorus 2.5 Magnesium 1.8 Total Bilirubin 0.6 AST 15 ALT 11 Alkaline Phosphatase 112 H Creatine Kinase 26 C-Reactive Protein 25.3 H Total Protein 5.3 L Albumin 2.9 L Globulin 2.4 Procalcitonin 0.11 CMV IgG Ab CMV IgM Ab 10/10/20 10/10/20 06:32 10:57 WBC RBC Hgb Hct MCV MCH MCHC RDW Plt Count MPV Neut % (Auto) Lymph % (Auto) Wilson % (Auto) Eos % (Auto) Baso % (Auto) Neut # (Auto) Lymph # (Auto) Wilson # (Auto) Eos # (Auto) Baso # (Auto) Nucleated RBC % (auto) Nucleated RBCs # PT INR Sodium Potassium Chloride Carbon Dioxide Anion Gap BUN Creatinine GFR Calculation Glucose POC Glucose 217 H 212 H Calculated Osmolality Calcium Phosphorus Magnesium Total Bilirubin AST ALT Alkaline Phosphatase Creatine Kinase C-Reactive Protein Total Protein Albumin Globulin Procalcitonin CMV IgG Ab CMV IgM Ab Micro: Microbiology 10/05/20 12:30 Blood Culture - Final Blood NO GROWTH AFTER 5 DAYS 10/05/20 12:30 Blood Culture - Final Blood NO GROWTH AFTER 5 DAYS 10/08/20 10:08 Gram Stain - Final Cerebrospinal Fluid CSF Culture - Preliminary Cryptococcal Antigen - Final 10/07/20 18:00 Urine Culture - Final Urine Catheterized Cardiac Studies: No Data to Display
[2020-10-10] MEDS: sodium chloride 0.9% 1,000 ML 30 ML IV (13:58)
--- NOTE | 2020-10-10 14:16 | P.CONIM_ITS ---
Providers/Reason For Consult Consulting Physician/Specialty*: General Surgery Dr. Wall Reason for Consult*: PEG placement Attending Physician: Donald Guillen MD Primary Care Provider: Janae Wiggins MD History of Present Illness History of Present Illness Sandra Richardson is a 75 year old female who was diagnosed with acute metabolic encephalopathy secondary to prolonged hypoglycemia. Patient is awake but does not follow commands. After discussion with the family decision was made to proceed with a PEG tube placement. No prior history of incarcerated ventral hernia which is not tender palpation Review of Systems General: Reports: ROS unobtainable due to mental status Meds/Allergies Home Medications and Allergies Home Medications Medication Instructions Recorded Confirmed Last Taken Type furosemide 40 mg PO DAILY 08/10/19 10/05/20 10/04/20 History gabapentin 100 mg PO DAILY 08/10/19 10/05/20 10/04/20 History insulin glargine [Lantus Solostar 50 unit SUBCUT BEDTIME 08/10/19 10/05/20 10/04/20 History U-100 Insulin] insulin lispro [Humalog KwikPen See Rx Instructions .ROUTE .COMPLEX 08/10/19 10/05/20 10/04/20 History Insulin] levothyroxine 175 mcg PO DAILY 08/10/19 10/05/20 10/05/20 History metformin 500 mg PO DAILY 08/10/19 10/05/20 10/04/20 History warfarin 5 mg PO DAILY 08/10/19 10/05/20 10/04/20 History brimonidine 0.2 %-timolol 0.5 % 1 drop OPHTHALMIC (EYE) BID 10/16/19 10/05/20 10/05/20 History eye drops cholecalciferol (vitamin D3) 25 3,000 unit PO DAILY cap 10/16/19 10/05/20 10/04/20 History mcg (1,000 unit) capsule multivitamin 1 tab PO DAILY 10/16/19 10/05/20 10/04/20 History potassium chloride 20 mEq 20 meq PO DAILY #90 tab 11/17/19 10/05/20 10/04/20 Rx tablet,extended release(part/cryst) digoxin 250 mcg (0.25 mg) tablet 250 mcg PO DAILY #90 tab 08/12/20 10/05/20 10/04/20 Rx gabapentin 300 mg PO BEDTIME 10/05/20 10/05/20 10/04/20 History metoprolol succinate 50 mg 50 mg PO BID #180 tab 10/09/20 Unknown Rx tablet,extended release 24 hr Allergies Allergy/AdvReac Type Severity Reaction Status Date / Time acetaminophen [From Tylenol] Allergy ALGY-Rash Verified 03/20/20 15:59 aspirin Allergy ALGY-Hives Verified 03/20/20 15:59 ibuprofen Allergy ALGY-Rash Verified 03/20/20 15:59 Penicillins Allergy Unknown Verified 03/20/20 15:59 Current Medications Current Medications Generic Name Dose Route Start Last Admin Trade Name Freq PRN Reason Stop Dose Admin Cyanocobalamin 1,000 mcg 10/08/20 09:00 10/10/20 08:49 Cyanocobalamin 1,000 Mcg/Ml Sdv IM 1,000 mcg DAILY MATT Administration Dextrose/Sodium Chloride 1,000 mls @ 50 mls/hr 10/05/20 15:45 10/09/20 22:52 Dextrose 5%-Sod Chloride 0.45% IV 50 mls/hr .Q20H MATT Administration Sodium Chloride 1,000 mls @ 30 mls/hr 10/10/20 14:00 10/10/20 13:58 Sodium Chloride 0.9% IV 10/11/20 13:59 30 mls/hr .Q24H MTAT Administration Insulin Aspart 0 unit 10/05/20 18:00 10/10/20 11:17 Insulin Aspart 100 Unit/1 Ml SUBCUT 4 unit WM&BEDTIME MATT Administration Protocol Levothyroxine Sodium 87.5 mcg 10/08/20 16:15 10/10/20 08:50 Levothyroxine 100 Mcg Sdv IVP 87.5 mcg DAILY MATT Administration Pantoprazole Sodium 40 mg 10/06/20 23:15 10/10/20 11:20 Pantoprazole 40 Mg Sdv IVP 40 mg Q12H MATT Administration Thiamine HCl 100 mg 10/07/20 14:00 10/10/20 08:49 Thiamine 100 Mg/Ml Sdv IV 100 mg DAILY MATT Administration Vancomycin HCl 125 mg 10/09/20 17:00 10/10/20 13:39 Vancomycin 1,000 Mg Oral Karla (Btl) PO Not Given QID MATT PFSH Acute PFSH: Medical History Atrial fibrillation CHF (congestive heart failure) Graves disease HTN (hypertension) Mitral regurgitation Type 1 diabetes Family History Mother Cancer CAD (coronary artery disease) Myocardial infarction Father Myocardial infarction Social History Smoking and tobacco status: never smoked Alcohol intake: never Current occupational status: retired Vitals/I&O/Wt Last Vital Signs Temp 97.6 F 10/10/20 12:12 Pulse 80 10/10/20 13:48 Resp 18 10/10/20 13:48 BP 134/104 10/10/20 13:48 Pulse Ox 95 10/10/20 13:48 10/09/20 10/10/20 10/10/20 22:59 06:59 14:59 Intake Total 1105 / 1905 750 / 1905 Output Total 300 / 720 420 / 720 Balance 805 / 1185 330 / 1185 Physical Exam Narrative: EXAM NARRATIVE: HEENT: Normocephalic Eye: Sclera /conjunctiva normal Respiratory and chest: Bilateral clear breath sounds on auscultation Cardiovascular: Normal S1 and S2 heart sounds Abdomen: Soft to palpation Neurological: Oriented to place person and time Skin: Intact, no lesions appreciated on gross exam Urinary Catheter Management^: Jessica: Cath Placed During This Visit: yes Reason for Continuing Indwelling Catheter: Other Urinary Catheter Date of Insertion: 10/05/20 Urinary Catheter Time of Insertion: 17:10 Data Micro: Micro: Microbiology 10/05/20 12:30 Blood Culture - Fi nal Blood NO GROWTH AFTER 5 DAYS 10/05/20 12:30 Blood Culture - Fi nal Blood NO GROWTH AFTER 5 DAYS 10/08/20 10:08 Gram Stain - Final Cerebrospinal Flu id CSF Culture - Prel iminary Cryptococcal Antig en - Final 10/07/20 18:00 Urine Culture - Fi nal Urine Catheterize d A&P Assessment and plan (1) Coma of unknown etiology: 75-year-old female with acute metabolic encephalopathy secondary to prolonged hypoglycemia who was unable to meet her nutritional needs by mouth Plan for PEG tube placement under MAC today Procedure, risks, benefits and alternatives have been discussed with the patient who wishes to proceed with surgery. 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
--- NOTE | 2020-10-10 14:44 | P.PN_ITS ---
Subjective Subjective: Interval history: This morning patient was examined, afebrile overnight, normotensive, saturating high 90s on room air, she does not withdraw from pain, she does find the sternal rub irritating, pupils are equal round reactive to light, she does not respond to her name, does not follow commands, her eyes are wide open she is looking at me, but does not follow me around the room, has spontaneous movement of upper and lower extremities, but does fall back asleep This morning patient's family called case workers and they were concerned about PEG tube placement. This morning I had a extensive discussion of a PEG tube placement, they were worried about aspiration risk, worried about long-term prognosis, worried about implications of PEG tube placement. I had an extensive and prolonged discussion about PEG tube placement, the associated low but real aspiration risk, the reduced quality of life, her prognosis remains guarded, side effects of PEG tube placement. Family members which include 2 sisters voiced understanding, all questions answered, agreed to proceed with PEG tube placement. I advised 5 members that once the PEG tube is placed, she is receiving nutrition, and we can start treating the C. difficile, I will call hospitalist for transfer. Yesterday Guy Cutler, [facility] and other hospitals currently are full, and will only take patients if urgently required. We will try again tomorrow morning Vitals/I&O/Wt Last Vital Signs Temp 97.6 F 10/10/20 12:12 Pulse 80 10/10/20 13:48 Resp 18 10/10/20 13:48 BP 134/104 10/10/20 13:48 Pulse Ox 95 10/10/20 13:48 10/09/20 10/10/20 10/10/20 22:59 06:59 14:59 Intake Total 1105 / 1155 750 / 1905 Output Total 300 / 300 420 / 720 Balance 805 / 855 330 / 1185 Physical Exam Const: COMMON NORMALS: no acute distress and alert GENERAL APPEARANCE: not cooperative ORIENTATION/CONSCIOUSNESS: Yes awake and Yes confused; not oriented to person, not oriented to place and not oriented to time Neck/C-Spine: COMMON NORMALS: no JVD Resp: COMMON NORMALS: normal respiratory effort, No retractions, No use of accessory muscles and clear to auscultation bilaterally AUSCULTATION: clear to auscultation bilaterally Cardio: COMMON NORMALS: no JVD, regular rate, regular rhythm, S1 normal heart sound present and S2 normal heart sound present RATE: regular rate RHYTHM: regular rhythm HEART SOUNDS: S1 normal heart sound present and S2 normal heart sound present GI: COMMON NORMALS: Normal to inspection, nondistended, normoactive bowel soun ds present, Soft to palpation, non-tender and No hepatosplenomegaly present PALPATION: Yes Soft to palpation and Yes No hepatosplenomegaly present Extremity: OTHER: Slight edema bilateral hands, Neuro: SENSORIUM/ORIENTATION: Yes alert, No oriented to person, No oriented to place and No oriented to time OTHER: Does not follow neurologic testing, pupils equal round reactive to light, does not withdraw from pain, does find sternal rub irritating Urinary Catheter Management^: Jessica: Cath Placed During This Visit: yes Reason for Continuing Indwelling Catheter: Other Urinary Catheter Date of Insertion: 10/05/20 Urinary Catheter Time of Insertion: 17:10 Data : 10/10/20 05:57 10/10/20 05:57 Micro: Microbiology 10/05/20 12:30 Blood Culture - Final Blood NO GROWTH AFTER 5 DAYS 10/05/20 12:30 Blood Culture - Final Blood NO GROWTH AFTER 5 DAYS 10/08/20 10:08 Gram Stain - Final Cerebrospinal Fluid CSF Culture - Preliminary Cryptococcal Antigen - Final 10/07/20 18:00 Urine Culture - Final Urine Catheterized A&P Assessment and plan (1) Acute encephalopathy: Acute metabolic encephalopathy, acute, likely secondary to prolonged hy poglycemia Etiology is likely secondary to prolonged hypoglycemia, neurologic injury and damage associated Current GCS is:10 Currently in a semicomatose state CT head wo con:There are 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 There is moderate cortical atrophy. Low-density changes in the white matter are consistent with nonspecific small vessel chronic ischemic change. There is no intracranial mass, hemorrhage or edema. MRI MRI of the brain shows chronic infarct left parietal lobe, with encephalomalacia, no acute findings EEG : There was severe diffuse slowing at 2-3 hz consistent with diffuse severe brain dysfunction. There was brief almost normal background during photic stimulation Echocardiogram EF of 55%, no regional wall motion abnormalities, pulmonary hypertension moderate, mild to moderate mitral and aortic valve regurg, moderate tricuspid valve regurg Carotid artery ultrasound pending Lumbar puncture, clear, colorless, 0 WBCs, 0 RBC, Gram stain no white blood cells, no organisms, culture pending, cryptococcal antigen negative CMV pending Neurochecks, aspiration precautions, seizure precautions Able to maintain airway, monitor respiratory status closely Continue D5 half-normal saline at 50 cc Thiamine 100 mg IV daily, cyanocobalamin 1000 mcg daily Neurology on consult Currently n.p.o., plan for PEG tube placement today Family would like patient to be transferred for second opinion, will work on this in the next 24 hours, if this is unsuccessful family is agreeable to placement likely in the [place] area Working on placement Full code SCDs for DVT prophylaxis Currently INR 1.13, patient did recieve one dose of therapeutic lovenox today, hold for surgery today, resume Eliquis tomorrow Start p.o. vancomycin for C. difficile through PEG tube Once PEG tube is placed, start tube feeds based on surgery's recommendations Antibiotics for UTI have been stopped, blood cultures no growth, urine cultures no growth, CSF cultures no growth Plan for today, continue monitor neurologic function, continued fluid,, n.p.o. for PEG tube placement, working on transferring the next 24 hours Status: Acute (2) UTI (urinary tract infection): Follow Urine Culture Ceftriaxone 1 gm q24 h daily Status: Acute (3) Type 1 diabetes: LDSSI Monitor FSG D5 1/2 Ns @ 50cc/hr Status: Acute (4) Atrial fibrillation: A.fib not in RVR Currently rate controlled. Follow INR Received 1 dose of therapeutic Lovenox, continue to hold as planned for a lumbar puncture Status: Acute Qualifiers: Atrial fibrillation type: unspecified Qualified Code(s): I48.91 - Unspecified atrial fibrillation (5) CHF (congestive heart failure): CHF Currently compensated Monitor I/O Daily Weight Status: Acute Qualifiers: Heart failure type: diastolic Heart failure chronicity: chronic Qualified Code(s): I50.32 - Chronic diastolic (congestive) heart failure (6) HTN (hypertension): Blood Pressure well controlled. Status: Acute Qualifiers: Hypertension type: essential hypertension Qualified Code(s): I10 - Essential (primary) hypertension (7) Hypothyroidism: IV levothyroxine 87.5 mcg daily TSH:0.34 Status: Acute (8) Coma of unknown etiology: Status: Acute (9) C. difficile colitis: -Patient according to family members has been complaining of explosive diarrhea for the last 2 weeks -C. difficile positive, start vancomycin through PEG tube once placed Status: Acute Additional A&P Information Code Status :Full code DVT PPX:Agnesx. Disposition:If she fails to show any improvement in overall mentation she will likely need PEG tube placement. Attestations Medical Necessity Statement*: Patient requires hospitalization for acute encephalopathy secondary to hypoglycemia, semicomatose state, proceeding with PEG tube placement, working on transfer versus placement to long-term care facility, Cdiff Coding Level of Care Code Acute Digital Marketing Apprentice for [facility] Fwd Diagnoses Acute encephalopathy G93.40 UTI (urinary tract infection) N39.0 Type 1 diabetes E10.9 Atrial fibrillation I48.91 Atrial fibrillation type: unspecified CHF (congestive heart failure) I50.32 Heart failure type: diastolic Heart failure chronicity: chronic HTN (hypertension) I10 Hypertension type: essential hypertension Hypothyroidism E03.9 Coma of unknown etiology R40.20 C. difficile colitis A04.72
--- NOTE | 2020-10-10 15:09 | P.PCN_ITS ---
Documented by User: Javier Montgomery CRNA 10/10/20 15:09 PACU note PACU note: VSS, Good respiratory effort, report to CRACKER SPRAYER
[2020-10-10 15:17] LABS: Glucose Point of Care 157 mg/dL (70-110)
--- NOTE | 2020-10-10 15:20 | ANE.PACU2 ---
Inpatient post-anesthesia follow up: Airway intact: Yes Vital signs: Temperature 97.6 F Pulse Rate [Monito r] 91 Pulse Rate 80 Respiratory Rate 18 Blood Pressure [Le ft Arm] 157/109 Blood Pressure 134/104 Pulse Oximetry 95 Oxygen Delivery Me thod [ Room Air Current Rate & Del franklin] Oxygen Delivery Me thod Room Air Oxygen Flow Rate 4 Fraction of Inspir ed Oxygen Hydration adequate: Yes Nausea and vomiting: No Pain level: 1 Mental status: Baseline
[2020-10-10 17:00] LABS: Glucose Point of Care 146 mg/dL (70-110)
--- NOTE | 2020-10-10 17:31 | PC.NUTR ---
TF consult: Nurse states MD would like to run TF at 10 ml overnight to monitor tolerance prior to increase. Recommend Glucerna 1.2 at 10 ml/hr overnight. In AM 10/11/20, recommend increase by 10 ml/hr q 8 hours to goal rate of 60 ml/hr, to provide 1728 kcal, 1159 ml H2O, 86 g protein. Recommend 150 ml H2O flushes q 6 hours to bring fluid total to 1759 mL, however flushes to be adjusted per MD discretion considering other fluid provision. Recommend decrease/discontinue D5 1/2 NS as TF increases to avoid fluid overload and promote glucose control. See RD assessment for further details.
--- NOTE | 2020-10-10 19:50 | P.OP_ITS ---
Operative Report Date of procedure: October 10, 2020 Pre-op Diagnosis: altered mental status requiring enteral access Post-op Diagnosis: Normal EGD Procedure Done: Percutaneous endoscopic placement of 20 Kinyarwanda [employer] Endovive gastrostomy tube Pathology: none sent Surgeon: Lalo Wlal Anesthesia: MAC Condition: stable Disposition: PACU Procedure: The patient was taken to the Operating Room and was placed under monitored anesthesia care after antibiotic had been administered. A bite block was placed and Olympus gastroscope was introduced and advanced up to the stomach and the first portion of the duodenum. There were no abnormalities noted in the esophagus, stomach and duodenum. The site for the planned PEG was confirmed in the left upper quadrant with transillumination using gastroscope noted through the abdominal wall and indentation of the abdominal wall noted on the gastroscope. This site was marked, and total of 5 milliliters of 1% lidocaine was infiltrated. An 11-blade was used to make a stab incision. An introducer needle was passed through the abdominal wall into the gastric lumen and the needle removed and the needle removed and the sheath left behind. A guidewire was passed through the introducer needle into the gastric lumen and grasped with a snare attached to the gastroscope. The gastroscope was withdrawn along with the guidewire, which was attached to the 20-Kinyarwanda EndoVive PEG tube. The guidewire was then pulled through the abdominal wall along with the PEG through the mouth into the gastric lumen until the inner disc was noted to stand against the gastric wall. The gastroscope was reintroduced to confirm good position. The outer disc was then attached and the two way valve was fixed to the PEG tube. The outer disc was noted to be at 3 centimeters at the skin level. Sterile dressing and abdominal binder was placed. The patient was stable throughout the procedure.
[2020-10-10 20:54] LABS: Glucose Point of Care 162 mg/dL (70-110)
[2020-10-11] VITALS (13 sets, daily range): BP systolic 110–136; BP diastolic 74–89; PULSE 76–175; RESP 14–16; TEMP 36.4–37; O2SAT 91–95
[2020-10-11 03:09] LABS: Basophils % 0.5 %; Eosinophils # 0.2 10^3/uL (0.0-0.8); Eosinophils % 2.7 %; Hematocrit 39.3 % (37.0-47.0); Hemoglobin 13.2 g/dL (11.5-15.3); Lymphocytes % 16.3 %; Mean Corpuscular HGB Conc 33.6 g/dL (30.0-36.0); Mean Corpuscular Hemoglobin 29.7 pg (28.0-34.0); Mean Corpuscular Volume 88.3 fL (81-99); Mean Platelet Volume 9.4 fL (7.4-10.4); Monocytes # 0.5 10^3/uL (0.2-0.9); Monocytes % 7.8 %; Neutrophils # 4.16 10^3/uL (1.8-7.7); Nucleated Red Blood Cells % 0 %; Platelet Count 193 10^3/cmm (130-400); Red Blood Count 4.45 10^6/uL (4.1-5.3); Red Cell Distribution Width 12.1 % (12.1-15.1)
[2020-10-11 03:24] LABS: INR 1.08 (0.8-1.2)
[2020-10-11 03:31] LABS: Alanine Aminotransferase 11 U/L (0-33); Albumin Level 2.9 g/dL (3.5-5.2); Alkaline Phosphatase 111 IU/L (35-105); Anion Gap 14.5 (5-19); Aspartate Amino Transferase 15 U/L (0-32); Blood Urea Nitrogen 10 mg/dL (8-23); Calcium 8.3 mg/dL (8.5-10.5); Carbon Dioxide 29 mmol/L (22-29); Chloride 101 mmol/L (98-107); Creatinine Clr Calc Pharmacy 73.7471; Globulin 2.3 g/dL (1.3-4.6); Glucose 182 mg/dL (65-115); Magnesium 1.7 mg/dL (1.7-2.3); Osmolality Calculated 296 mOsm/kg (285-295); Phosphorus 2.5 mg/dL (2.5-4.5); Potassium 3.5 mmol/L (3.5-5.1); Sodium 141 mmol/L (136-145); Total Bilirubin 0.6 mg/dL (0.15-1.2); Total Protein 5.2 g/dL (6.6-8.7)
[2020-10-11 03:42] LABS: NT Pro B Type Natriuretic Pept 826 pg/mL (0-125)
[2020-10-11] MEDS: labetalol 5 mg/mL SDV 20mL 10 MG IVP (05:18)
[2020-10-11 06:45] LABS: Glucose Point of Care 231 mg/dL (70-110)
--- NOTE | 2020-10-11 07:20 | PC.NURSE ---
bleach boiler puller nurse misunderstood report given and did not start tube feedings as recommended per air pumper note. Nurse stated that she was told by Dr. Rai that feeds needed to be started in post op day 1. PEG tube feed started now at 10 ml/hr as ordered per Dr. Wall. Aircraft Maintenance Technician notified and she stated that we could discuss further during heart to heart rounding.
[2020-10-11] MEDS: cyanocobalamin 1,000 mcg/mL SDV 1000 MCG IM (09:15)
[2020-10-11] MEDS: levothyroxine 100 mcg SDV 87.5 MCG IVP (10:25)
[2020-10-11] MEDS: apixaban 5 mg Tablet PO (11:14)
[2020-10-11] MEDS: pantoprazole 40 mg SDV IVP (11:15)
[2020-10-11 12:45] LABS: Glucose Point of Care 254 mg/dL (70-110)
[2020-10-11] MEDS: potassium chloride ER 20 mEq Tablet PEG-TUBE (13:14)
[2020-10-11] MEDS: FUROsemide 40 mg Tablet PEG-TUBE (13:14)
[2020-10-11] MEDS: digoxin 250 mcg Tablet PEG-TUBE (13:15)
--- NOTE | 2020-10-11 13:25 | PC.OT ---
Occupational therapy evaluation attempted, patient unable to respond or follow simple commands, squeeze my hand etc. She is not a good candidate for therapy at this time, if a status change occurs please send new orders.
--- NOTE | 2020-10-11 14:06 | PC.NUTR ---
Nutrition reassessment: Delay in TF initiation due to miscommunication of physician preferences. Glucerna 1.2 now running at 10 ml/hr. D5 has been discontinued. Recommend continue to advance TF by 10 ml/hr q8 hrs to goal of 60 ml/hr as tolerated, and adjust H2O flushes per MD discretion d/t CHF dx. Recommend monitor residuals and TF tolerance, as well as Na, K glucose, and renal labs. See RD assessments for further details.
--- NOTE | 2020-10-11 14:25 | P.PN_ITS ---
Subjective Subjective: Interval history: Patient was seen this morning, she successfully had PEG tube placed yesterday, this morning she did with the assistance of physical therapy sit to the side of bed, was unable to hold on her own, but did not really follow commands, this morning when I saw her, she does not track, pupils are equal round reactive to light, she does not respond to commands, she does not withdraw from pain, Babinski's upwards going bilaterally, afebrile overnight, saturating high 90s room air, normotensive, Vitals/I&O/Wt Last Vital Signs Temp 97.5 F L 10/11/20 12:17 Pulse 88 10/11/20 13:15 Resp 14 10/11/20 12:17 BP 121/82 10/11/20 12:17 Pulse Ox 95 10/11/20 12:17 10/10/20 10/11/20 10/11/20 22:59 06:59 14:59 Intake Total 1000 / 1000 1000 / 2000 120 / 120 Output Total 600 / 600 Balance 1000 / 1000 400 / 1400 120 / 120 Physical Exam Narrative: EXAM NARRATIVE: This morning she does not withdraw from pain, does not respond to sternal rub, does have spontaneous eye movement, spontaneous movement lower extremities, does turn away from the light, does not follow commands, no significant verbal responses Const: COMMON NORMALS: no acute distress and alert; negative for patient oriented x3 EXAM LIMITATIONS: altered mental status GENERAL APPEARANCE: not cooperative ORIENTATION/CONSCIOUSNESS: Yes awake and Yes confused; not oriented to person, not oriented to place and not oriented to time OTHER: Does not withdraw from pain, does not respond to sternal rub, maintaining her airway, saturations in the high 90s, Neck/C-Spine: COMMON NORMALS: no JVD Resp: COMMON NORMALS: normal respiratory effort, No retractions, No use of accessory muscles and clear to auscultation bilaterally AUSCULTATION: clear t o auscultation bilaterally Cardio: COMMON NORMALS: no JVD, regular rate, regular rhythm, S1 normal heart sound present, S2 normal heart sound present and No murmurs present (Cardio) RATE: regular rate RHYTHM: regular rhythm HEART SOUNDS: S1 normal heart sound present and S2 normal heart sound present GI: COMMON NORMALS: Normal to inspection, nondistended, normoactive bowel sounds present, Soft to palpation, non-tender and No hepatosplenomegaly present PALPATION: Yes Soft to palpation and Yes No hepatosplenomegaly present Extremity: COMMON NORMALS: no pedal edema Neuro: COMMON NORMALS: negative for patient oriented x3, negative for CN's II- XII intact bilaterally and negative for moves all extremities SENSORIUM/ORIENTATION: Yes alert, No oriented to person, No oriented to place and No oriented to time OTHER: Does not follow neurologic testing, pupils equal round reactive to light, does not withdraw from pain, does find sternal rub irritating Urinary Catheter Management^: Jessica: Cath Placed During This Visit: yes Reason for Continuing Indwelling Catheter: Acute Urinary Retention or Obstru ction Urinary Catheter Date of Insertion: 10/05/20 Urinary Catheter Time of Insertion: 17:10 Data : 10/11/20 02:56 10/11/20 02:56 Micro: Microbiology 10/05/20 12:30 Blood Culture - Final Blood NO GROWTH AFTER 5 DAYS 10/05/20 12:30 Blood Culture - Final Blood NO GROWTH AFTER 5 DAYS 10/08/20 10:08 Gram Stain - Final Cerebrospinal Fluid CSF Culture - Preliminary Cryptococcal Antigen - Final A&P Assessment and plan (1) Acute encephalopathy: Acute metabolic encephalopathy, acute, likely secondary to prolonged hypoglycemia Etiology is likely secondary to prolonged hypoglycemia, neurologic injury and damage associated Current GCS is:10 Currently in a semicomatose state CT head wo con:There are 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 There is moderate cortical atrophy. Low-density changes in the white matter are consistent with nonspecific small vessel chronic ischemic change. There is no intracranial mass, hemorrhage or edema. MRI MRI of the brain shows chronic infarct left parietal lobe, with encep halomalacia, no acute findings EEG : There was severe diffuse slowing at 2-3 hz consistent with diffuse severe brain dysfunction. There was brief almost normal background during photic stimulation Echocardiogram EF of 55%, no regional wall motion abnormalities, pulmonary hypertension moderate, mild to moderate mitral and aortic valve regurg, moderate tricuspid valve regurg Carotid artery ultrasound pending Lumbar puncture, clear, colorless, 0 WBCs, 0 RBC, Gram stain no white blood cells, no organisms, cultures so far negative, cryptococcal antigen negative CMV IgM less than 30, IgG greater than 10 Blood sugars have been between 100s to 200s HIV negative, hepatitis negative Herpes pending, Lyme pending Neurochecks, aspiration precautions, seizure precautions Able to maintain airway, monitor respiratory status closely stop fluids Thiamine 100 mg po daily, cyanocobalamin 1000 po daily Neurology on consult PEG tube placed, start 10ccc, then increase by [id number], to goal [id number], [id number] Family would like patient to be transferred for second opinion, will work on this in the next 24 hours, if this is unsuccessful family is agreeable to placement likely in the [place] area For history of atrial fibrillation rate controlled, start home digoxin, start Eliquis 5 mg twice daily, was on home Coumadin, will discontinue Coumadin for now Continue low-dose sliding scale Continue home levothyroxine through PEG tube Blood cultures no growth Urine cultures no growth CSF cultures no growth C. difficile positive, receiving vancomycin through PEG tube [facility] SCDs and Eliquis DVT prophylaxis Start p.o. vancomycin for C. difficile through PEG tube Antibiotics for UTI have been stopped, blood cultures no growth, urine cultures no growth, CSF cultures no growth Plan for today, continue monitor neurologic function, continue tube feeds, call for transfer, family working on placement to group home if she is accepted at another facility -[facility] full today -[facility], spoke to on-call hospitalist, who spoke to neurologist, discussed case, declined transfer -[facility] full, slightly full -Still waiting on ' Status: Acute (2) UTI (urinary tract infection): Follow Urine Culture Ceftriaxone 1 gm q24 h daily Status: Acute (3) Type 1 diabetes: LDSSI Monitor FSG D5 1/2 Ns @ 50cc/hr Status: Acute (4) Atrial fibrillation: A.fib not in RVR Currently rate controlled. Follow INR Received 1 dose of therapeutic Lovenox, continue to hold as planned for a lumbar puncture Status: Acute Qualifiers: Atrial fibrillation type: unspecified Qualified Code(s): I48.91 - Unspecified atrial fibrillation (5) CHF (congestive heart failure): CHF Currently compensated Monitor I/O Daily Weight Status: Acute Qualifiers: Heart failure type: diastolic Heart failure chronicity: chronic Qualified Code(s): I50.32 - Chronic diastolic (congestive) heart failure (6) HTN (hypertension): Blood Pressure well controlled. Status: Acute Qualifiers: Hypertension type: essential hypertension Qualified Code(s): I10 - Essential (primary) hypertension (7) Hypothyroidism: IV levothyroxine 87.5 mcg daily TSH:0.34 Status: Acute (8) Coma of unknown etiology: Status: Acute (9) C. difficile colitis: -Patient according to family members has been complaining of explosive diarrhea for the last 2 weeks -C. difficile positive, start vancomycin through PEG tube once placed Status: Acute Additional A&P Information Code Status :Full code DVT PPX:Lovenox. Disposition:If she fails to show any improvement in overall mentation she will likely need PEG tube placement. Attestations Medical Necessity Statement*: Patient requires hospitalization for semico matose state secondary to prolonged hypoglycemia Coding Level of Care Code Acute Aged Or Disabled Care Worker for [facility] Fwd Diagnoses Acute encephalopathy G93.40 UTI (urinary tract infection) N39.0 Type 1 diabetes E10.9 Atrial fibrillation I48.91 Atrial fibrillation type: unspecified CHF (congestive heart failure) I50.32 Heart failure type: diastolic Heart failure chronicity: chronic HTN (hypertension) I10 Hypertension type: essential hypertension Hypothyroidism E03.9 Coma of unknown etiology R40.20 C. difficile colitis A04.72
[2020-10-11 17:39] LABS: Glucose Point of Care 201 mg/dL (70-110)
--- NOTE | 2020-10-11 18:11 | P.PN_ITS ---
Subjective Subjective: Interval history: No major issues over night, tolerating tube feeds at 10 cc/h Vitals/I&O/Wt Last Vital Signs Temp 98.6 F 10/11/20 17:44 Pulse 88 10/11/20 17:44 Resp 15 10/11/20 17:44 BP 110/74 10/11/20 17:44 Pulse Ox 95 10/11/20 17:44 10/11/20 10/11/20 10/11/20 06:59 14:59 22:59 Intake Total 1000 / 2000 120 / 120 Output Total 600 / 600 Balance 400 / 1400 120 / 120 Physical Exam Narrative: EXAM NARRATIVE: Abdomen: Soft, nondistended, PEG tube in the left upper quadrant, no hematoma or cellulitis Urinary Catheter Management^: Jessica: Cath Placed During This Visit: yes Reason for Continuing Indwelling Catheter: Acute Urinary Retention or Obstruction Urinary Catheter Date of Insertion: 10/05/20 Urinary Catheter Time of Insertion: 17:10 Data : 10/11/20 02:56 10/11/20 02:56 Micro: Microbiology 10/08/20 10:08 Gram Stain - Final Cerebrospinal Fluid CSF Culture - Final Cryptococcal Antigen - Final A&P Assessment and plan (1) S/P percutaneous endoscopic gastrostomy (PEG) tube placement: 75-year-old female status post PEG tube placement, tolerating tube feeds Advance tube feeds to goal Status: Acute Attestations Medical Necessity Statement*: As per primary Coding Level of Care Code Acute Cardiac Nurse Specialist for [facility] Fwd Diagnoses S/P percutaneous endoscopic gastrostomy (PEG) tube placement Z93.1
--- NOTE | 2020-10-11 18:27 | P.TS_ITS ---
Transfer Summary Providers Date of Admission: 10/05/20 14:48 Date of Discharge: 10/11/20 Attending Provider at Admission: Tesfaye Cannon MD Attending Provider at Transfer: Donald Guillen MD Primary Care Provider: Janae Wiggins MD Anticipated Date of Transfer: Anticipated date of transfer: 10/11/20 Receiving Facility & Provider: Receiving Provider: [] Receiving facility: [] Diagnoses at Discharge Discharge Diagnosis (1) S/P percutaneous endoscopic gastrostomy (PEG) tube placement: Status: Acute Reason for Visit Reason for Visit: HYPOGLYCEMIA; AMS Hospital Course Hospital Course This is a 75-year-old female with a past medical history of type 1 diabetes mellitus, hypothyroidism, atrial fibrillation on Coumadin, chronic diarrhea who presents to [facility] due to hypoglycemia and altered mental status According to patient's family, patient has a history of chronic diarrhea, she has been dealing for the last year, however over the last few weeks her diarrhea significantly worsened, so her 2 sisters from [place] came down to be with her, over the last week her diarrhea was slightly improved, until October 04 after dinner she has significant episodes of diarrhea, and she was in the bathroom at roughly 9 PM her sisters checked up on her and her blood sugars were in the low 70s, she was somnolent, so they gave her candies, and she became responsive, following commands, however they were worried that given her type 1 diabetes now she might become hypoglycemic, sedated for Lantus, they are not sure how much Lantus they gave, but she takes 50 units at bedtime, then they got worried about her becoming hypoglycemic, so they kept giving her candies or juice until about 2 AM her blood sugars were in the high 80s to 100s, she was alert oriented, became irritated with the sisters and wanted to be left alone, so they put her to bed, when family checked up on her at 10 AM, she was somnolent, not responding, her blood sugars were in the 40s, thus EMS was called when EMS arrived, she received a D5 infusion, arrival to the emergency room her blood sugar was 68, she is given amp of D50, her blood sugars improved to the 160s, she was unresponsive after trial of Narcan, [place] Coma Scale was 10-11, saturating in high 90s on room air. Patient was admitted to [facility] ICU for acute encephalopathy and semicomatose state secondary to prolonged hypoglycemia. After extensive work-up as below, the recommendation was for long-term placement, PEG tube placement, treatment for C. difficile. However patient's family was hesitant about PEG tube placement, the procedure had to be canceled and rescheduled twice, this happened over a period of 2 days, family agreed to PEG tube placement and it was placed on 10/10/2020. Family was adamant about a second opinion, second opinion from neurology, wanted a transfer to tertiary level care center. I called [facility] hospitals [facility]. Patient was excepted at [facility] Acute encephalopathy: Acute metabolic encephalopathy, acute, likely secondary to prolonged hypoglycemia Etiology is likely secondary to prolonged hypoglycemia, neurologic injury and damage associated Current GCS is:10 Currently in a semicomatose state Today she does not really track, pupils equal round reactive to light, she was set up in to the side of the bed by physical therapy, was able to hold on her own, but she really does not follow commands for me, she does not withdraw from pain, she does not respond to her name, does not respond to sternal rub CT head wo con:There are 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 There is moderate cortical atrophy. Low-density changes in the white matter are consistent with nonspecific small vessel chronic ischemic change. There is no intracranial mass, hemorrhage or edema. MRI MRI of the brain shows chronic infarct left parietal lobe, with encephalomalacia, no acute findings EEG : There was severe diffuse slowing at 2-3 hz consistent with diffuse severe brain dysfunction. There was brief almost normal background during photic stimulation Echocardiogram EF of 55%, no regional wall motion abnormalities, pulmonary hypertension moderate, mild to moderate mitral and aortic valve regurg, moderate tricuspid valve regurg Carotid artery ultrasound pending Lumbar puncture, clear, colorless, 0 WBCs, 0 RBC, Gram stain no white blood cells, no organisms, cultures so far negative, cryptococcal antigen negative HSV LP studies, Lyme CSF studies, legal band IgG, VDRL CSF pending CMV IgM less than 30, IgG greater than 10 Blood sugars have been between 100s to 200s during her hospitalization, HIV negative, hepatitis negative Neurochecks, aspiration precautions, seizure precautions Able to maintain airway, monitor respiratory status closely Was on fluids, had been n.p.o. since her hospitalization, patient's 2 sisters went back and forth about PEG tube placement, procedure had to be canceled twice before they proceeded with PEG tube placement Thiamine 100 mg po daily, cyanocobalamin 1000 po daily Neurology recommended hypoglycemia coma, EEG indicating diffuse slowing, brain dysfunction, patient is better than vegetative, but her prognosis is guarded, she will require long-term care PEG tube placed, start 10ccc, then increase by [id number], to goal [id number], [id number] Family would like patient to be transferred for second opinion, patient was excepted by [facility], hospitalist Dr. Johnson For history of atrial fibrillation rate controlled, start home digoxin, start Eliquis 5 mg twice daily, was on home Coumadin, will discontinue Coumadin for now Continue low-dose sliding scale Continue home levothyroxine through PEG tube Blood cultures no growth Urine cultures no growth CSF cultures no growth C. difficile positive, receiving vancomycin through PEG tube Family Working on placement [facility] Full code SCDs and Eliquis DVT prophylaxis Transfer to [facility] Physical Exam Narrative: EXAM NARRATIVE: This morning she does not withdraw from pain, does not respond to sternal rub, does have spontaneous eye movement, spontaneous movement lower extremities, does turn away from the light, does not follow commands, no significant verbal responses Const: COMMON NORMALS: no acute distress and alert GENERAL APPEARANCE: not cooperative ORIENTATION/CONSCIOUSNESS: Yes awake and Yes confused; not oriented to person, not oriented to place and not oriented to time OTHER: Does not withdraw from pain, does not respond to sternal rub, maintaining her airway, saturations in the high 90s, Neck/C-Spine: COMMON NORMALS: no JVD Resp: COMMON NORMALS: normal respiratory effort, No retractions, No use of accessory muscles and clear to auscultation bilaterally AUSCULTATION: clear to auscultation bilaterally Cardio: COMMON NORMALS: no JVD, regular rate, regular rhythm, S1 normal heart sound present, S2 normal heart sound present and No murmurs present (Cardio) RATE: regular rate RHYTHM: regular rhythm HEART SOUNDS: S1 normal heart sound present and S2 normal heart sound present GI: COMMON NORMALS: Normal to inspection, nondistended, normoactive bowel sounds present, Soft to palpation, non-tender and No hepatosplenomegaly present PALPATION: Yes Soft to palpation and Yes No hepatosplenomegaly present Extremity: COMMON NORMALS: no pedal edema Neuro: SENSORIUM/ORIENTATION: Yes alert, No oriented to person, No oriented to place and No oriented to time Urinary Catheter Management^: Jessica: Cath Placed During This Visit: yes Reason for Continuing Indwelling Catheter: Acute Urinary Retention or Obstruction Urinary Catheter Date of Insertion: 10/05/20 Urinary Catheter Time of Insertion: 17:10 TS Data Data Completed and Pending: Completed Studies During Hospitalization Category Date Time Status CT abdomen pelvis wo con [id number] Rout ine Cat Scan 10/07/20 15:[address] head wo con* [id number] Urgent Cat Scan 10/05/20 11:49 Completed FL guided lumbarp unc dx* [id number] Rout ine Exams 10/08/20 08:00 Completed XR chest 1V lena ble [id number] Routine Exams 10/06/20 06:00 Completed XR chest 1V lena ble [id number] Stat Exams 10/05/20 11:58 Completed MR head wo con* [id number] Stat MRI 10/07/20 10:28 Completed CV carotid duplex BI* [id number] Routine Ultrasound 10/08/20 06:00 Completed CV echo complete* [id number] Routine Ultrasound 10/08/20 06:00 Completed Pending at discharge Category Date Time Status EEG electroenceph alogram Routine Exams 10/06/20 08:20 Ordered Blood Culture Sta t Lab 10/07/20 14:51 Results Complete Blood Co unt w/Auto AM LABS Lab 10/12/20 04:00 Ordered Complete Blood Co unt w/Auto AM LABS Lab 10/13/20 04:00 Ordered Comprehensive Met abolic Panel AM LA BS Lab 10/12/20 04:00 Ordered Comprehensive Met abolic Panel AM LA BS Lab 10/13/20 04:00 Ordered Herpes Simplex Vi crissy DNA Stat Lab 10/07/20 13:49 Received Lymes Disease Ant ibodies CSF Stat Lab 10/07/20 13:45 Received Magnesium AM LABS Lab 10/12/20 04:00 Ordered Magnesium AM LABS Lab 10/13/20 04:00 Ordered Miscellaneous Annel t Routine Lab 10/08/20 10:08 Received Miscellaneous Annel t Routine Lab 10/08/20 10:08 Received Miscellaneous Annel t Routine Lab 10/08/20 10:08 Received NT Pro B Type Carley riuretic Pept QAM Lab 10/12/20 06:00 Ordered NT Pro B Type Carley riuretic Pept QAM Lab 10/13/20 06:00 Ordered Oligoclonal Bands IGG, CSF Stat Lab 10/07/20 14:54 Received Phosphorus AM LAB S Lab 10/12/20 04:00 Ordered Phosphorus AM LAB S Lab 10/13/20 04:00 Ordered Prothrombin Time INR AM LABS Lab 10/12/20 04:00 Ordered Prothrombin Time INR AM LABS Lab 10/13/20 04:00 Ordered SARS Covid-2 Anti gen Routine Lab 10/11/20 17:36 Uncollected Sputum Culture an d Gram Stain Stat Lab 10/07/20 13:56 Uncollected [place] Enceph. Virus IFA CSF Stat Lab 10/07/20 13:45 Received VDRL on CSF Stat Lab 10/07/20 13:45 Received West Nile Virus A B Panel,CSF Stat Lab 10/07/20 13:45 Received MR head wo con* [id number] Routine MRI 10/07/20 14:30 Unverified Labs from last 24 hours 10/11/20 10/11/20 10/11/20 17:27 10:58 06:31 WBC RBC Hgb Hct MCV MCH MCHC RDW Plt Count MPV Neut % (Auto) Lymph % (Auto) [place] % (Auto) Eos % (Auto) Baso % (Auto) Neut # (Auto) Lymph # (Auto) [place] # (Auto) Eos # (Auto) Baso # (Auto) Nucleated RBC % (a uto) Nucleated RBCs # PT INR Sodium Potassium Chloride Carbon Dioxide Anion Gap BUN Creatinine GFR Calculation Glucose POC Glucose 201 H 254 H 231 H Calculated Osmolal ity Calcium Phosphorus Magnesium Total Bilirubin AST ALT Alkaline Phosphata se NT-Pro-B Natriuret Pep Total Protein Albumin Globulin 10/11/20 10/11/20 10/11/20 02:56 02:56 02:56 WBC RBC Hgb Hct MCV MCH MCHC RDW Plt Count MPV Neut % (Auto) Lymph % (Auto) [place] % (Auto) Eos % (Auto) Baso % (Auto) Neut # (Auto) Lymph # (Auto) [place] # (Auto) Eos # (Auto) Baso # (Auto) Nucleated RBC % (a uto) Nucleated RBCs # PT 14.30 INR 1.08 Sodium 141 Potassium 3.5 Chloride 101 Carbon Dioxide 29 Anion Gap 14.5 BUN 10 Creatinine 0.8 GFR Calculation Not Reportable Glucose 182 H POC Glucose Calculated Osmolal ity 296 H Calcium 8.3 L Phosphorus 2.5 Magnesium 1.7 Total Bilirubin 0.6 AST 15 ALT 11 Alkaline Phosphata se 111 H NT-Pro-B Natriuret Pep 826 H Total Protein 5.2 L Albumin 2.9 L Globulin 2.3 10/11/20 10/10/20 02:56 20:32 WBC 6.0 RBC 4.45 Hgb 13.2 Hct 39.3 MCV 88.3 MCH 29.7 MCHC 33.6 RDW 12.1 Plt Count 193 MPV 9.4 Neut % (Auto) 69.0 Lymph % (Auto) 16.3 [place] % (Auto) 7.8 Eos % (Auto) 2.7 Baso % (Auto) 0.5 Neut # (Auto) 4.16 Lymph # (Auto) 1.0 [place] # (Auto) 0.5 Eos # (Auto) 0.2 Baso # (Auto) 0.0 Nucleated RBC % (a uto) 0 Nucleated RBCs # 0.0 PT INR Sodium Potassium Chloride Carbon Dioxide Anion Gap BUN Creatinine GFR Calculation Glucose POC Glucose 162 H Calculated Osmolal ity Calcium Phosphorus Magnesium Total Bilirubin AST ALT Alkaline Phosphata se NT-Pro-B Natriuret Pep Total Protein Albumin Globulin Vitals: Last Vital Signs Temp 98.6 F 10/11/20 17:44 Pulse 88 10/11/20 17:44 Resp 15 10/11/20 17:44 BP 110/74 10/11/20 17:44 Pulse Ox 95 10/11/20 17:44 TS Medications Medications Home Medications furosemide 40 mg PO DAILY 08/10/19 [History Confirmed 10/05/20] gabapentin 100 mg PO DAILY 08/10/19 [History Confirmed 10/05/20] insulin glargine [Lantus Solostar U-100 Insulin] 50 unit SUBCUT BEDTIME 08/10/19 [History Confirmed 10/05/20] insulin lispro [Humalog KwikPen Insulin] See Rx Instructions .ROUTE .COMPLEX 08/10/19 [History Confirmed 10/05/20] levothyroxine 175 mcg PO DAILY 08/10/19 [History Confirmed 10/05/20] metformin 500 mg PO DAILY 08/10/19 [History Confirmed 10/05/20] warfarin 5 mg PO DAILY 08/10/19 [History Confirmed 10/05/20] brimonidine 0.2 %-timolol 0.5 % eye drops 1 drop OPHTHALMIC (EYE) BID 10/16/19 [History Confirmed 10/05/20] cholecalciferol (vitamin D3) 25 mcg (1,000 unit) capsule 3,000 unit PO DAILY cap 10/16/19 [History Confirmed 10/05/20] multivitamin 1 tab PO DAILY 10/16/19 [History Confirmed 10/05/20] potassium chloride 20 mEq tablet,extended release(part/cryst) 20 meq PO DAILY #90 tab 11/17/19 [Rx Confirmed 10/05/20] digoxin 250 mcg (0.25 mg) tablet 250 mcg PO DAILY #90 tab 08/12/20 [Rx Confirmed 10/05/20] gabapentin 300 mg PO BEDTIME 10/05/20 [History Confirmed 10/05/20] metoprolol succinate 50 mg tablet,extended release 24 hr 50 mg PO BID #180 tab 10/09/20 [Rx] Active Medications Acetaminophen (Acetaminophen 325 Mg Tablet) 650 mg PO Q6H PRN PRN Reason: Mild/Mod Pain Or Temp >/= 101 Apixaban (Apixaban 5 Mg Tablet) 5 mg PEG-TUBE Q12H MATT Cyanocobalamin (Cyanocobalamin 1,000 Mcg Tablet) 1,000 mcg PEG-TUBE DAILY MATT Dextrose (Dextrose 50% Syringe 50 Ml) 25 ml IVP ONCE PRN; Protocol PRN Reason: hypoglycemia protocol Dextrose (Dextrose 50% Syringe 50 Ml) 50 ml IVP PRN PRN; Protocol PRN Reason: hypoglycemia protocol Digoxin (Digoxin 250 Mcg Tablet) 250 mcg PEG-TUBE DAILY MATT Last Admin: 10/11/20 13:15 Dose: 250 mcg Documented by: Furosemide (Furosemide 40 Mg Tablet) 40 mg PEG-TUBE DAILY MATT Last Admin: 10/11/20 13:14 Dose: 40 mg Documented by: Gabapentin (Gabapentin 100 Mg Capsule) 100 mg PEG-TUBE DAILY MATT Gabapentin (Gabapentin 300 Mg Capsule) 300 mg PEG-TUBE BEDTIME MATT Glucagon (Glucagon 1 Mg/Ml Inj 1 Ml) 1 mg IM ONCE PRN; Protocol PRN Reason: Adult Acute Hypoglycemia Prot. Dextrose (D5w) 500 mls @ 100 mls/hr IV ONCE PRN; Protocol PRN Reason: Adult Acute Hypoglycemia Prot Insulin Aspart (Insulin Aspart 100 Unit/1 Ml) 0 unit SUBCUT WM&BEDTIME [facility]; Protocol Last Admin: 10/11/20 12:59 Dose: 6 unit Documented by: Levothyroxine Sodium (Levothyroxine 175 Mcg Tablet) 175 mcg PO DAILY [facility] Non-Formulary Medication (Brimonidine-Timolol [Combigan]) 1 drop EYEAFF BID [facility] Ondansetron HCl (Ondansetron 2 Mg/Ml Sdv 2 Ml) 4 mg IVP Q8H PRN PRN Reason: vomiting, or N/V if npo Pantoprazole Sodium (Pantoprazole Dr 40 Mg Tablet) 40 mg PEG-TUBE DAILY [facility] Potassium Chloride (Potassium Chloride Er 20 Meq Tablet) 20 meq PEG-TUBE DAILY [facility] Last Admin: 10/11/20 13:14 Dose: 20 meq Documented by: Thiamine Mononitrate (Thiamine 100 Mg Tablet) 100 mg PEG-TUBE DAILY [facility] Vancomycin HCl (Vancomycin 1,000 Mg Oral Karla (Btl)) 125 mg PO QID [facility] Last Admin: 10/11/20 12:55 Dose: 125 mg Documented by: Vitamin D (Cholecalciferol (Vitamin D3) 1,000 Unit Tablet) 3,000 unit PEG-TUBE DAILY [facility] Discharge Plan Discharge Patient Disposition: Home Condition: Stable Prescriptions: No Action Combigan 0.2-0.5 % drops 1 drop ophthalmic (eye) BID RF: 0 cholecalciferol (vitamin D3) 25 mcg (1,000 unit) capsule 3,000 unit PO DAILY RF: 0 multivitamin Tablet 1 tab PO DAILY RF: 0 potassium chloride 20 mEq tablet,ER particles/crystals 20 meq PO DAILY Qty: 90 RF: 3 digoxin 250 mcg (0.25 mg) tablet 250 mcg PO DAILY Qty: 90 RF: 3 metoprolol succinate 50 mg tablet extended release 24 hr 50 mg PO BID Qty: 180 RF: 3 furosemide 40 mg tablet 40 mg PO DAILY RF: 0 levothyroxine 175 mcg tablet 175 mcg PO DAILY RF: 0 warfarin 5 mg tablet 5 mg PO DAILY RF: 0 gabapentin 100 mg capsule 100 mg PO DAILY RF: 0 metformin 500 mg tablet extended release 24 hr 500 mg PO DAILY RF: 0 insulin lispro [Humalog KwikPen Insulin] 100 unit/mL insulin pen See Rx Instructions .ROUTE .COMPLEX RF: 0 Lantus Solostar U-100 Insulin 100 unit/mL (3 mL) insulin pen 50 unit SUBCUT BEDTIME RF: 0 gabapentin 300 mg capsule 300 mg PO BEDTIME RF: 0 Discharge Orders: Transfer Out of Facility (Order); Ordered 10/11/20 Ordered By: Donald Guillen Patient Instructions: Opioid Safety Transfer Attestations Time Spent in Transfer Care*: greater than 30 min Quality Metrics Clinical Quality Measures: During this hospital stay, did patient experience: None Coding Level of Care Code Acute Recruiting Manager for Chg Fwd Diagnoses S/P percutaneous endoscopic gastrostomy (PEG) tube placement Z93.1
[2020-10-11 21:05] LABS: Glucose Point of Care 195 mg/dL (70-110)
[2020-10-11 23:00] LABS: SARS Covid-2 Antigen Negative (Negative)
--- NOTE | 2020-10-11 23:36 | PC.NURSE ---
TRANSFER: PATIENT BEING TRANSFERRED TO [facility] IN [place] PER FAMILY REQUEST. EMS TO FLOOR TO TRANSPORT. PATIENT INFORMATION AND CHART GIVEN TO EMS. PATIENT MOVED TO [facility] AND LEAVING FLOOR WITH EMS AT THIS TIME. NURSE RECEIVING PATIENT CALLED AND NOTIFIED THAT PATIENT IS LEAVING FACILITY FOR TRANSFER.
[2020-10-12 05:12] LABS: HSV 1 DNA NOT DETECTED; HSV 2 DNA NOT DETECTED; HSV Source CEREBROSPINAL FLUID
[2020-10-12 18:38] LABS: Lyme Disease AB (IGG),IBL NO BANDS DETECTED; Lyme Disease AB (IGM), IBL NO BANDS DETECTED
[2020-10-17 09:22] LABS: St. Louis Enceph.Virus IGG CSF <1:1; St. Louis Enceph.Virus IGM CSF <1:1; VDRL on CSF NON-REACTIVE; West Nile Virus AB (IGG) <1.30 index; West Nile Virus AB (IGM) <0.90 index
== END 2020-10-11 23:36 | disposition short-term general hospital (02) | DRG 637 ==
LOC: ER 14:19 → ICU 15:07 → MEDSURG 10-06 15:25
PROVIDERS: Internal Medicine; Surgery; Admitting Provider Internal Medicine; Emergency Provider Family Medicine; PCP Family Medicine; Visit Provider Family Medicine
PROC: 0DH63UZ Insertion of Feeding Device into Stomach, Percutaneous Approach (ICD-10-PCS; CPT 43246; principal; 2020-10-10 12:25)
DX: E10.641 Type 1 diabetes mellitus with hypoglycemia with coma (principal); G93.41 Metabolic encephalopathy; I50.32 Chronic diastolic (congestive) heart failure; I48.11 Longstanding persistent atrial fibrillation; N39.0 Urinary tract infection, site not specified; A04.72 Enterocolitis due to Clostridium difficile, not specified as recurrent; I11.0 Hypertensive heart disease with heart failure; E03.9 Hypothyroidism, unspecified; I08.3 Combined rheumatic disorders of mitral, aortic and tricuspid valves; Z86.73 Personal history of transient ischemic attack (TIA), and cerebral infarction without residual deficits; I27.20 Pulmonary hypertension, unspecified; Z79.01 Long term (current) use of anticoagulants
CPT/HCPCS: 36415; 36416; 36430; 36600; 51702; 62328; 70450; 70551; 71045; 74176; 80053; 80074; 80162; 80500; 81001; 82042; 82140; 82274; 82550; 82607; 82746; 82803; 82945; 82962; 83605; 83615; 83735; 83880; 83916; 84100; 84145; 84157; 84315; 84443; 84484; 85014; 85018; 85025; 85378; 85610; 85651; 86140; 86592; 86617; 86653; 86788; 86789; 86900; 86927; 87040; 87070; 87075; 87086; 87205; 87327; 87426; 87493; 87530; 87806; 89050; 93005; 93306; 93880; 96365; 96372; 96375; 97162; 97530; 99285; C9113; J0696; J1650; J1815; J1956; J2310; J2370; J2704; J3370; J3411; J3420; J3430; J3480; J3490; J7030; J7799; P9017